=== PATIENT | female | born 1985 | race Caucasian/White ===

== ENCOUNTER 2016-12-14 09:51 | Emergency (ER) | payer MEDICAID, OTHER ==
[~2016-12-14] VITALS: Ht 170.2 cm; Wt 67.0 kg
[~2016-12-14 09:51] MED LIST: ABIL30TA2 PO; ADDE20 PO; BACT800T5 PO; BUTA1CAP PO; CEPH-460 PO; CITA40TA4 PO; XANA2TAB2 PO
[2016-12-14 09:54] VITALS: BP 106/69; PULSE 78; RESP 18; TEMP 98.3; O2SAT 96
[2016-12-14 10:41] LABS: AUTOMATED NEUTROPHIL # 2.8 TH/MM3 (1.8-7.7); BASOPHIL % 0.5 % (0.0-2.0); EOSINOPHIL # 0.2 TH/MM3 (0-0.4); EOSINOPHIL % 4.8 % (0.0-4.0); HEMATOCRIT 31.1 % (35.0-46.0); HEMO FLAGS DIFF FINAL; LYMPH % 33.1 % (9.0-44.0); LYMPHOCYTE # 1.7 TH/MM3 (1.0-4.8); MEAN CELL VOLUME 87.4 FL (80.0-100.0); MEAN CORPUSCULAR HEMOGLOBIN 29.7 PG (27.0-34.0); MONO % 8.2 % (0.0-8.0); NEUT % 53.4 % (16.0-70.0); PLATELET COUNT 201 TH/MM3 (150-450); RED BLOOD COUNT 3.56 MIL/MM3 (4.00-5.30); RED CELL DISTRIBUTION WIDTH 12.6 % (11.6-17.2); WHITE BLOOD COUNT 5.1 TH/MM3 (4.0-11.0)
[2016-12-14 10:42] LABS: BLOOD, URINE NEG (NEG); GLUCOSE,URINE NEG (NEG); KETONE, URINE NEG (NEG); NITRITE,URINE NEG (NEG)
[2016-12-14 10:50] LABS: CHLORIDE 105 MEQ/L (98-107); POTASSIUM 3.4 MEQ/L (3.5-5.1); SODIUM (NA) 141 MEQ/L (136-145)
[2016-12-14 10:52] LABS: BACTERIA, URINE FEW /hpf; COMMENT (UR) CULT NOT INDICATED; CULTURE IF INDICATED CULT NOT INDICATED; METHOD OF COLLECTION VOIDED; MUCUS URINE FEW /lpf (OCC); SQUAMOUS EPITHELIAL CELL URINE >8 /hpf (0-5); URINE COLOR YELLOW (YELLW/STRAW)
[2016-12-14 10:55] LABS: ANION GAP 9 MEQ/L (5-15); BICARBONATE 26.7 MEQ/L (21.0-32.0); BLOOD UREA NITROGEN 5 MG/DL (7-18)
[2016-12-14 10:58] LABS: ALT (GPT) 15 U/L (10-53); AST (GOT) 12 U/L (15-37); GLOMERULAR FILTRATION RATE 151 ML/MIN (>89)
[2016-12-14 10:59] LABS: TOTAL BILIRUBIN ADULT 0.5 MG/DL (0.2-1.0)
[2016-12-14] MEDS ORDERED: ONDANSETRON HCL 4 MG/2 ML VIAL IV ONE (11:00)
[2016-12-14] MEDS ORDERED: SODIUM CHLOR 0.9% 1000 ML INJ 1,000 ML IV SCH ×2 (11:00)
[2016-12-14 11:01] LABS: ALKALINE PHOSPHATASE 50 U/L (45-117)
--- NOTE | 2016-12-14 11:07 | PD ---
HPI Chief Complaint: GI Complaint Time Seen by Provider: 10:24 Travel History International Travel<30 days: No Contact w/Intl Traveler<30days: No Traveled to known affect area: No History of Present Illness HPI Is a 31-year-old woman who presents to the emergency department complaining of nausea and vomiting. States that she is approximately 16 weeks . Her last menstrual period she believes is in the middle of October. She states she's had worsening nausea and vomiting pretty much throughout the day for the past several weeks. She saw good days at times with 11 couple days in a row significant vomiting. She otherwise has felt generally well. She states she does get some intermittent abdominal cramping when she first stands up if she is vomiting a lot. No urinary symptoms. She had trouble with vomiting with her last . She is 5 para 3, 0, 1, 2 losing one infant to sudden . History Past Medical History Narrative Medical Hepatitis C LMP: 10/15/16 : 3 Para: 2 Social History Alcohol Use: Yes (SOCIALLY) Tobacco Use: Yes (4 CIG/DAY) Allergies-Medications (Allergen,Severity, Reaction): Coded Allergies: Penicillin (Verified Allergy, Severe, SWELLED UP CHILD, 12/14/16) Reported Meds & Prescriptions Reported Meds & Active Scripts Active Reported Adderall (Amphetamine-Dextroamphetamine) 20 Mg Tab 20 Mg PO BID Avoid late evening doses. Space doses at least 4 to 6 hours if more than once/day dosing. Xanax (Alprazolam) 2 Mg Tab 2 Mg PO TID Review of Systems Except as stated in HPI: all other systems reviewed are Neg Physical Exam Narrative GENERAL: Well-appearing 31-year-old woman. Bag of Medversants in the room with her. SKIN: Focused skin assessment warm/dry. NECK: Trachea midline. No JVD. CARDIOVASCULAR: Regular rate and rhythm. No murmur appreciated. RESPIRATORY: No accessory muscle use. Clear to auscultation. Breath sounds equal bilaterally. GASTROINTESTINAL: Abdomen soft, non-tender, nondistended. Hepatic and splenic margins not palpable. MUSCULOSKELETAL: No obvious deformities. No clubbing. No cyanosis. No edema. NEUROLOGICAL: Awake and alert. No obvious cranial nerve deficits. Motor grossly within normal limits. Normal speech. PSYCHIATRIC: Appropriate mood and affect; insight and judgment normal. Data Data Last Documented VS Vital Signs Date Time Temp Pulse Resp B/P Pulse Ox O2 Delivery O2 Flow Rate FiO2 12/14/16 09:54 98.3 78 18 106/69 96 Orders Beta Hcg (Quant/Titer) (12/14/16 10:11) Complete Blood Count With Diff (12/14/16 10:11) Comprehensive Metabolic Panel (12/14/16 10:11) Urinalysis - C+S If Indicated (12/14/16 10:11) Ed Poc Ultrasound (12/14/16 10:11) Ondansetron Inj (Zofran Inj) (12/14/16 11:00) Sodium Chlor 0.9% 1000 Ml Inj (Ns 1000 M (12/14/16 11:00) Sodium Chlor 0.9% 1000 Ml Inj (Ns 1000 M (12/14/16 11:00) Labs Laboratory Tests Test 12/14/16 12/14/16 10:30 10:35 White Blood Count 5.1 TH/MM3 Red Blood Count 3.56 MIL/MM3 Hemoglobin 10.6 GM/DL Hematocrit 31.1 % Mean Corpuscular Volume 87.4 FL Mean Corpuscular Hemoglobin 29.7 PG Mean Corpuscular Hemoglobin 34.0 % Concent Red Cell Distribution Width 12.6 % Platelet Count 201 TH/MM3 Mean Platelet Volume 8.7 FL Neutrophils (%) (Auto) 53.4 % Lymphocytes (%) (Auto) 33.1 % Monocytes (%) (Auto) 8.2 % Eosinophils (%) (Auto) 4.8 % Basophils (%) (Auto) 0.5 % Neutrophils # (Auto) 2.8 TH/MM3 Lymphocytes # (Auto) 1.7 TH/MM3 Monocytes # (Auto) 0.4 TH/MM3 Eosinophils # (Auto) 0.2 TH/MM3 Basophils # (Auto) 0.0 TH/MM3 CBC Comment DIFF FINAL Differential Comment Sodium Level 141 MEQ/L Potassium Level 3.4 MEQ/L Chloride Level 105 MEQ/L Carbon Dioxide Level 26.7 MEQ/L Anion Gap 9 MEQ/L Blood Urea Nitrogen 5 MG/DL Creatinine 0.48 MG/DL Estimat Glomerular Filtration 151 ML/MIN Rate Random Glucose 87 MG/DL Calcium Level 8.6 MG/DL Total Bilirubin 0.5 MG/DL Aspartate Amino Transf 12 U/L (AST/SGOT) Alanine Aminotransferase 15 U/L (ALT/SGPT) Alkaline Phosphatase 50 U/L Total Protein 6.4 GM/DL Albumin 3.1 GM/DL Human Chorionic Gonadotropin, 94958 MIU/ML Quant Urine Collection Type VOIDED Urine Color YELLOW Urine Turbidity CLEAR Urine pH 6.0 Urine Specific [place] 1.026 Urine Protein TRACE mg/dL Urine Glucose (UA) NEG mg/dL Urine Ketones NEG mg/dL Urine Occult Blood NEG Urine Nitrite NEG Urine Bilirubin NEG Urine Leukocyte Esterase SMALL Urine WBC 6-8 /hpf Urine Squamous Epithelial >8 /hpf Cells Urine Bacteria FEW /hpf Urine Mucus FEW /lpf Microscopic Urinalysis Comment CULT NOT INDICATED MDM Medical Decision Making Medical Screen Exam Complete: Yes Emergency Medical Condition: Yes Interpretation(s) LABS: CBC remarkable for mild anemia. CMP unremarkable. HCG 90,000 UA minimal pyuria. Differential Diagnosis LABS: CBC remarkable for mild anemia. CMP generally unremarkable. HCG negative. Coags unremarkable. Narrative Course 31-year-old woman, , bedside ultrasound shows about 12 weeks , here with vomiting. Looks well. We'll check screening labs. IV fluids. We' ll recommend Zofran. Discussed recent studies suggesting in association with defect some Zofran. Even her she may begin vomiting, and the benefit outweighs the potential risks. Patient's understanding. Recommend outpatient follow-up. Procedures Procedure Narrative Point of care ultrasound: Focus transabdominal ultrasound performed by me at the bedside shows intrauterine , presently 12 weeks 4 days by crown-rump length, with good heart movement in a heart rate of 150. Diagnosis Primary Impression: Nausea/vomiting in Additional Instructions: Take Zofran as needed for nausea or vomiting. Return to the emergency department for any worsening abdominal pain, dehydration , vaginal discharge or vaginal bleeding, or any other new or worsening symptoms. 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 Med/Other Pt SpecificInfo: Prescription(s) given Scripts Ondansetron Odt (Zofran Odt)4 Mg Tab4 Mg SL Q8HR PRN (Nausea/Vomiting) #15 TAB May substitute non-ODT form. Prov:Rosalio Mercado MD 12/14/16 Disposition: 01 DISCHARGE HOME Condition: Stable Rosalio Mercado MD Dec 14, 2016 11:07
[2016-12-14 11:16] LABS: BETA HCG QUANT 89524 MIU/ML (0-5)
[2016-12-14] MEDS ORDERED: ZOFR4TAB3 SL (11:27)
== END 2016-12-14 11:58 | disposition home or self-care (01) ==
LOC: PHED 09:51
DX: O21.9 Vomiting of pregnancy, unspecified (principal); O99.331 Smoking (tobacco) complicating pregnancy, first trimester; O98.411 Viral hepatitis complicating pregnancy, first trimester; B19.20 Unspecified viral hepatitis C without hepatic coma; F17.210 Nicotine dependence, cigarettes, uncomplicated; Z3A.12 12 weeks gestation of pregnancy
CPT/HCPCS: 80053; 81001; 84702; 85025; 96361; 96374; 99284; J2405; J7030

== ENCOUNTER 2017-01-02 14:00 | Emergency (ER) | payer MEDICAID ==
[~2017-01-02] VITALS: Ht 170.2 cm; Wt 69.1 kg
[~2017-01-02 14:00] MED LIST changes: -ABIL30TA2 PO; -BACT800T5 PO; -BUTA1CAP PO; -CEPH-460 PO; -CITA40TA4 PO; +ZOFR4TAB3 SL
[2017-01-02 14:06] VITALS: BP 122/75; PULSE 86; RESP 16; TEMP 97.9; O2SAT 99
--- NOTE | 2017-01-02 14:16 | PD ---
HPI . left arm possible cellulitis Chief Complaint: Skin Problem Time Seen by Provider: 14:16 Travel History International Travel<30 days: No Contact w/Intl Traveler<30days: No Traveled to known affect area: No History of Present Illness HPI 31-year-old female with hepatitis C and who is 4 months here with complaints of a possible cellulitis of her left arm. Patient tells me she's had this happen before and she thinks the same thing is occurring. She reports a small area of redness that started several days ago, and has progressively worsened over the past few days. She reports some tenderness to the area. She is not certain if she may have been stung by an insect. She denies any fever or chills. She is able to move her arm freely without any limited range of motion. She has no other concerns. She has not yet established with [facility]. PFSH Past Medical History Arthritis: No Asthma: No Anxiety: Yes Depression: Yes Diabetes: No Diminished Hearing: No Genitourinary: Yes (UTI'S) Headaches: Yes Hepatitis: Yes (hepatitis C) Hypertension: No Reproductive: Yes (" I GET MY PERIOD ONCE OR TWICE A YEAR") Respiratory: No Migraines: Yes (D/T SINUS INFECTIONS AMD ALLERGIES) ?: LMP: 4 months states LMP 09/20/16 : 3 Para: 2 Miscarriage: 1 Social History Alcohol Use: Yes (SOCIALLY) Tobacco Use: Yes (4 CIG/DAY) Substance Use: No (DENIES AT PRESENT) Allergies-Medications (Allergen,Severity, Reaction): Coded Allergies: Penicillin (Verified Allergy, Severe, SWELLED UP CHILD, 01/02/17) Reported Meds & Prescriptions Reported Meds & Active Scripts Active Clindamycin (Clindamycin HCl) 300 Mg Cap 300 Mg PO TID Review of Systems General / Constitutional: No: Fever Eyes: No: Visual changes HENT: No: Headaches Cardiovascular: No: Chest Pain or Discomfort Respiratory: No: Shortness of Breath Gastrointestinal: No: Abdominal Pain Genitourinary: No: Dysuria Musculoskeletal: No: Pain Skin: Positive Other (left arm cellulitis ), No Rash Neurologic: No: Weakness Psychiatric: No: Depression Endocrine: No: Polydipsia Hematologic/Lymphatic: No: Easy Bruising Physical Exam Narrative GENERAL: AAO x 3, no acute distress, Well-nourished, well-developed patient. SKIN: Warm and dry. No visible rashes or bruising. left arm proximal to antecubital fossa, small 2.5 cm area of induration without any fluctuance, there is surrounding erythema and slight warmth to touch. HEAD: Normocephalic and atraumatic. EYES: No scleral icterus. No injection or drainage. ENT: No nasal drainage noted. Mucous membranes pink. Airway patent. NECK: Supple, trachea midline. No JVD. CARDIOVASCULAR: Regular rate and rhythm without murmurs, gallops, or rubs. RESPIRATORY: Breath sounds equal bilaterally. No accessory muscle use. No rhonchi or rales. GASTROINTESTINAL: Visual inspection normal EXTREMITIES: No cyanosis or edema. Full ROM b/l arm. BACK: Nontender without obvious deformity. No CVA tenderness. NEURO: CN II-12 intact, c programmer strength normal b/l, UE and LE 5/5, no focal deficits PSYCH: AAO x 3, normal affect. Data Data Last Documented VS Vital Signs Date Time Temp Pulse Resp B/P Pulse Ox O2 Delivery O2 Flow Rate FiO2 01/02/17 14:06 97.9 86 16 122/75 99 MDM Medical Decision Making Medical Screen Exam Complete: Yes Emergency Medical Condition: Yes Medical Record Reviewed: Yes Differential Diagnosis left arm cellulitis, early abscess, insect bite, less likely shingle Narrative Course 31-year-old female here with possible left arm cellulitis Examination was done and patient does appear to have a very superficial area of left arm cellulitis. She is currently and has not had any care. I have discussed case with Dr. Barker. We will go ahead and use clindamycin which is category B and safe in . I have stressed to patient that she needs to establish with a local [facility] for care. We discussed the signs of worsening infection when to return to the emergency department. I also advised her clean with soap and water daily and use topical Neosporin. Patient verbalized understanding of instructions, questions were answered, and thanked me for their care. I advised them if their condition worsens, please return to the nearest emergency room for further care. Diagnosis Primary Impression: Cellulitis of left arm Patient Instructions: General Instructions Additional Instructions: Please try to establish with a local [facility] and get care as soon as possible. [place] for worsening signs of infection which include fever, increased redness , increased warmth, purulent drainage, increased swelling or streaking. If any of these develop, please go to the nearest emergency room. You can also try topical neosporin to this area. Clean with soap and water daily. You can try to use warm compresses to the area to see if a head develops. If it does, you can come back to the emergency department to have it drained. Med/Other Pt SpecificInfo: Prescription(s) given Scripts Clindamycin 300 Mg Act816 Mg PO TID #21 CAP Prov:Amrik Barker MD 01/02/17 Disposition: 01 DISCHARGE HOME Condition: Stable Luna Sands Jan 02, 2017 14:16
[2017-01-02] MEDS ORDERED: CLIN1CAP6 PO (14:23)
== END 2017-01-02 14:36 | disposition home or self-care (01) ==
LOC: PHEFT 14:00
DX: O98.819 Other maternal infectious and parasitic diseases complicating pregnancy, unspecified trimester (principal); L03.114 Cellulitis of left upper limb; O09.30 Supervision of pregnancy with insufficient antenatal care, unspecified trimester; Z3A.00 Weeks of gestation of pregnancy not specified
CPT/HCPCS: 99283

== ENCOUNTER 2017-01-30 15:59 | Emergency (ER) | payer MEDICAID ==
[~2017-01-30] VITALS: Ht 170.2 cm; Wt 69.0 kg
[~2017-01-30 15:59] MED LIST changes: -ADDE20 PO; +CLIN1CAP6 PO; -XANA2TAB2 PO; -ZOFR4TAB3 SL
[2017-01-30 16:02] VITALS: BP 114/53; PULSE 74; RESP 16; TEMP 97.3; O2SAT 99
[2017-01-30] MEDS ORDERED: SODIUM CHLOR 0.9% 1000 ML INJ 1,000 ML IV SCH (16:18)
[2017-01-30 16:22] VITALS: RESP 18; O2SAT 98
--- NOTE | 2017-01-30 16:22 | PD ---
HPI Chief Complaint: Related Problem Time Seen by Provider: 16:08 Travel History International Travel<30 days: No Contact w/Intl Traveler<30days: No Traveled to known affect area: No History of Present Illness HPI 31-year-old female approximately 4 months here for evaluation of left lower abdominal pain and left flank pain. Symptoms started yesterday, sharp, moderate pain, constant, no modifying factors. She denies fevers or chills. No urinary symptoms. No vaginal bleeding or discharge. She reports several episodes of vomiting yesterday. She has not yet had care. She smokes about a half pack of cigarettes daily. PFSH Past Medical History Arthritis: No Asthma: No Anxiety: Yes Depression: Yes Diabetes: No Diminished Hearing: No Genitourinary: Yes (UTI'S) Headaches: Yes Hepatitis: Yes (hepatitis C) Hypertension: No Reproductive: Yes (" I GET MY PERIOD ONCE OR TWICE A YEAR") Respiratory: No Immunizations Current: No Migraines: Yes (D/T SINUS INFECTIONS AMD ALLERGIES) ?: LMP: 10/21/2016 : 3 Para: 2 Miscarriage: 1 Social History Alcohol Use: Yes (SOCIALLY) Tobacco Use: Yes (4 CIG/DAY) Substance Use: No (DENIES AT PRESENT) Allergies-Medications (Allergen,Severity, Reaction): Coded Allergies: Penicillin (Verified Allergy, Severe, PT DENIES ALLERGY, 01/30/17) Reported Meds & Prescriptions Reported Meds & Active Scripts Active Clindamycin (Clindamycin HCl) 300 Mg Cap 300 Mg PO TID Review of Systems Except as stated in HPI: all other systems reviewed are Neg Physical Exam Narrative GENERAL: Well-developed, well-nourished, comfortable, no apparent distress. SKIN: Focused skin assessment warm/dry. No rash. HEAD: Atraumatic. Normocephalic. EYES: Pupils equal and round. No scleral icterus. No injection or drainage. ENT: Mucous membranes pink and moist. NECK: Trachea midline. No JVD. CARDIOVASCULAR: Regular rate and rhythm. RESPIRATORY: No accessory muscle use. Clear to auscultation. Breath sounds equal bilaterally. GASTROINTESTINAL: Abdomen soft, non-tender, gravid uterus around the umbilicus. MUSCULOSKELETAL: No obvious deformities. No clubbing. No cyanosis. No edema. NEUROLOGICAL: Awake and alert. No obvious cranial nerve deficits. Motor grossly within normal limits. Normal speech. PSYCHIATRIC: Appropriate mood and affect; insight and judgment normal. Data Data Last Documented VS Vital Signs Date Time Temp Pulse Resp B/P Pulse Ox O2 Delivery O2 Flow Rate FiO2 01/30/17 16:22 18 98 Room Air 01/30/17 16:02 97.3 74 114/53 Orders Complete Blood Count With Diff (01/30/17 16:18) Comprehensive Metabolic Panel (01/30/17 16:18) Urinalysis - C+S If Indicated (01/30/17 16:18) Iv Access Insert/Monitor (01/30/17 16:18) Ecg Monitoring (01/30/17 16:18) Oximetry (01/30/17 16:18) Sodium Chlor 0.9% 1000 Ml Inj (Ns 1000 M (01/30/17 16:18) Sodium Chloride 0.9% Flush (Ns Flush) (01/30/17 16:30) Potassium Chloride (Kcl) (01/30/17 17:15) Labs Laboratory Tests Test 01/30/17 16:45 White Blood Count 6.7 TH/MM3 Red Blood Count 3.74 MIL/MM3 Hemoglobin 10.8 GM/DL Hematocrit 33.4 % Mean Corpuscular Volume 89.3 FL Mean Corpuscular Hemoglobin 28.9 PG Mean Corpuscular Hemoglobin 32.3 % Concent Red Cell Distribution Width 13.2 % Platelet Count 288 TH/MM3 Mean Platelet Volume 7.7 FL Neutrophils (%) (Auto) 58.8 % Lymphocytes (%) (Auto) 29.4 % Monocytes (%) (Auto) 6.8 % Eosinophils (%) (Auto) 4.7 % Basophils (%) (Auto) 0.3 % Neutrophils # (Auto) 3.9 TH/MM3 Lymphocytes # (Auto) 2.0 TH/MM3 Monocytes # (Auto) 0.5 TH/MM3 Eosinophils # (Auto) 0.3 TH/MM3 Basophils # (Auto) 0.0 TH/MM3 CBC Comment DIFF FINAL Differential Comment Urine Collection Type CLEAN CATCH Urine Color YELLOW Urine Turbidity CLEAR Urine pH 6.0 Urine Specific [place] 1.028 Urine Protein NEG mg/dL Urine Glucose (UA) NEG mg/dL Urine Ketones TRACE mg/dL Urine Occult Blood NEG Urine Nitrite NEG Urine Bilirubin NEG Urine Leukocyte Esterase NEG Urine RBC 0-3 /hpf Urine WBC 3-5 /hpf Urine Squamous Epithelial 6-8 /hpf Cells Urine Amorphous Sediment FEW Microscopic Urinalysis Comment CULT NOT INDICATED Sodium Level 137 MEQ/L Potassium Level 3.2 MEQ/L Chloride Level 104 MEQ/L Carbon Dioxide Level 24.9 MEQ/L Anion Gap 8 MEQ/L Blood Urea Nitrogen 9 MG/DL Creatinine 0.61 MG/DL Estimat Glomerular Filtration 114 ML/MIN Rate Random Glucose 75 MG/DL Calcium Level 8.5 MG/DL Total Bilirubin 0.4 MG/DL Aspartate Amino Transf 17 U/L (AST/SGOT) Alanine Aminotransferase 16 U/L (ALT/SGPT) Alkaline Phosphatase 68 U/L Total Protein 6.9 GM/DL Albumin 3.0 GM/DL [facility] Medical Decision Making Medical Screen Exam Complete: Yes Emergency Medical Condition: Yes Medical Record Reviewed: Yes Differential Diagnosis , round ligament pain, colitis, diverticulitis, UTI, pyelonephritis, cystitis, nephrolithiasis, hydronephrosis Narrative Course Bedside transabdominal ultrasound was performed by me and shows an IUP with a heart rate of 140 bpm. Bedside renal ultrasound was performed by me and shows normal appearing kidneys bilaterally without signs of hydronephrosis. The patient was counseled on smoking cessation. Vital signs show heart rate 74, blood pressure 114/53, pulse ox 99% on room air , oral temp 97.3F. CBC shows WBC 6.7, hemoglobin 10.8, hematocrit 33.4, platelets 288. H&H was similar to months ago. CMP is remarkable for potassium 3.2, albumin 3, otherwise unremarkable. Potassium replaced orally. UA shows trace ketones, 8 squamous epithelial cells, not suggestive of UTI. The patient is resting comfortably. There is mild suprapubic tenderness. I do not believe that there is an acute surgical process to warrant imaging at this time. She is likely suffering from round ligament pain. She is stable for discharge home with outpatient follow-up. I will give her the [facility] as well as the [place] [facility] with whom to follow-up with this week. She was informed on when to return to the emergency department. She verbalizes understanding and agreement with plan. Procedures Procedure Narrative Bedside OB transabdominal ultrasound: Using the curvilinear ultrasound probe, a bedside ultrasound was performed by me and shows an IUP with heart rate of 140 bpm. Bedside renal ultrasound: Using the curvilinear ultrasound probe, a bedside renal ultrasound was performed by me and shows normal appearing kidneys bilaterally without signs of hydronephrosis. Diagnosis Primary Impression: Abdominal pain during Qualified Code: O26.892 - Abdominal pain during in second trimester Additional Impression: Hypokalemia Referrals: [facility] 3 days [facility] 3 days Additional Instructions: Follow-up with an NETWORK INTELLIGENCE ANALYST doctor this week. Return to the emergency department for worsening symptoms or any other concerns. Disposition: 01 DISCHARGE HOME Condition: Stable Sunday Wang MD Jan 30, 2017 16:22
[2017-01-30] MEDS ORDERED: SODIUM CHLORIDE 0.9% FLUSH 10 ML FLUSH IV FLUSH PRN (16:30)
[2017-01-30 16:54] LABS: AUTOMATED NEUTROPHIL # 3.9 TH/MM3 (1.8-7.7); BASOPHIL % 0.3 % (0.0-2.0); EOSINOPHIL # 0.3 TH/MM3 (0-0.4); EOSINOPHIL % 4.7 % (0.0-4.0); HEMATOCRIT 33.4 % (35.0-46.0); HEMO FLAGS DIFF FINAL; LYMPH % 29.4 % (9.0-44.0); MEAN CELL VOLUME 89.3 FL (80.0-100.0); MEAN CORPUSCULAR HEMOGLOBIN 28.9 PG (27.0-34.0); MEAN CORPUSCULAR HGB CONC 32.3 % (32.0-36.0); MONO % 6.8 % (0.0-8.0); NEUT % 58.8 % (16.0-70.0); PLATELET COUNT 288 TH/MM3 (150-450); RED BLOOD COUNT 3.74 MIL/MM3 (4.00-5.30); RED CELL DISTRIBUTION WIDTH 13.2 % (11.6-17.2); WHITE BLOOD COUNT 6.7 TH/MM3 (4.0-11.0)
[2017-01-30 16:57] LABS: BLOOD, URINE NEG (NEG); GLUCOSE,URINE NEG (NEG); KETONE, URINE TRACE mg/dL (NEG); NITRITE,URINE NEG (NEG)
[2017-01-30 16:59] LABS: METHOD OF COLLECTION CLEAN CATCH; URINE COLOR YELLOW (YELLW/STRAW)
[2017-01-30 17:01] LABS: RBC, URINE 0-3 /hpf (0-3)
[2017-01-30 17:02] LABS: CHLORIDE 104 MEQ/L (98-107); COMMENT (UR) CULT NOT INDICATED; COMMENT2 (UR) MUCOUS PRESENT; CULTURE IF INDICATED CULT NOT INDICATED; POTASSIUM 3.2 MEQ/L (3.5-5.1); SODIUM (NA) 137 MEQ/L (136-145)
[2017-01-30 17:05] LABS: ANION GAP 8 MEQ/L (5-15); BICARBONATE 24.9 MEQ/L (21.0-32.0); BLOOD UREA NITROGEN 9 MG/DL (7-18)
[2017-01-30 17:08] LABS: ALT (GPT) 16 U/L (10-53); AST (GOT) 17 U/L (15-37); GLOMERULAR FILTRATION RATE 114 ML/MIN (>89)
[2017-01-30 17:10] LABS: TOTAL BILIRUBIN ADULT 0.4 MG/DL (0.2-1.0)
[2017-01-30 17:11] LABS: ALKALINE PHOSPHATASE 68 U/L (45-117)
[2017-01-30] MEDS ORDERED: POTASSIUM CHLORIDE 20 MEQ CONTROLLED RELEASE TAB PO ONE (17:15)
== END 2017-01-30 18:03 | disposition home or self-care (01) ==
LOC: PHED 15:59
DX: O26.892 Other specified pregnancy related conditions, second trimester (principal); E87.6 Hypokalemia; O99.332 Smoking (tobacco) complicating pregnancy, second trimester; F17.210 Nicotine dependence, cigarettes, uncomplicated; Z3A.00 Weeks of gestation of pregnancy not specified
CPT/HCPCS: 80053; 81001; 85025; 99284; J7030

== ENCOUNTER 2017-07-30 14:42 | Emergency (ER) | payer MEDICAID ==
[~2017-07-30] VITALS: Ht 170.2 cm; Wt 69.0 kg
[~2017-07-30 14:42] MED LIST changes: -CLIN1CAP6 PO; +CLIN300C5 PO
[2017-07-30 14:57] VITALS: BP 104/70; PULSE 93; RESP 16; TEMP 97.7; O2SAT 98
[2017-07-30] MEDS ORDERED: CELE10TA PO (15:50)
[2017-07-30] MEDS ORDERED: ARIP2 PO (15:50)
[2017-07-30] MEDS ORDERED: XANA2TAB2 PO (15:50)
[2017-07-30] MEDS ORDERED: BENZ100 PO (16:25)
[2017-07-30] MEDS ORDERED: AZIT250T3 PO (16:25)
--- NOTE | 2017-07-30 16:29 | PD ---
HPI Chief Complaint: Cold / Flu Symptoms Time Seen by Provider: 15:38 Travel History International Travel<30 days: No Contact w/Intl Traveler<30days: No Traveled to known affect area: No History of Present Illness HPI 32-year-old female that presents to the ED for evaluation of cold-like symptoms. Patient has a cold like symptoms for about 3 days. She does have body aches, congestion and cough with runny nose. Sore throat. No ear pain. Patient comes here with daughter who has been sick for about 5 days. She did not get the flu shot. She denies any recent travel. No chest pain or shortness of breath. Having body aches and the pain per patient is 6 out of 10. She been taking OTC meds with minimal relief. Allergy to penicillin. No other medical issues at this time. PFSH Past Medical History Arthritis: No Asthma: No Anxiety: Yes Depression: Yes Diabetes: No Diminished Hearing: No Genitourinary: Yes (UTI'S) Headaches: Yes Hepatitis: Yes (hepatitis C) Hypertension: No Reproductive: Yes (" I GET MY PERIOD ONCE OR TWICE A YEAR") Respiratory: No Immunizations Current: Yes Migraines: Yes (D/T SINUS INFECTIONS AMD ALLERGIES) ?: Not : 3 Para: 2 Miscarriage: 1 Past Surgical History Other Surgery: No Social History Alcohol Use: Yes (SOCIALLY) Tobacco Use: Yes (4 CIG/DAY) Substance Use: No (hx of iv drug use) Allergies-Medications (Allergen,Severity, Reaction): Coded Allergies: penicillin G (Unverified Allergy, Severe, PT DENIES ALLERGY, 07/30/17) Reported Meds & Prescriptions Reported Meds & Active Scripts Active Tessalon Perles (Benzonatate) 100 Mg Cap 100 Mg PO TID PRN Azithromycin 250 Mg Tab 250 Mg PO DIRECTED Take 2 tabs (500 mg) on day 1 then 1 tab daily x 4 days. Reported Celexa (Citalopram Hydrobromide) 10 Mg Tab 10 Mg PO DAILY Abilify (Aripiprazole) 2 Mg Tab Unknown Dose PO DAILY Xanax (Alprazolam) 2 Mg Tab 2 Mg PO Q8H Review of Systems Except as stated in HPI: all other systems reviewed are Neg Physical Exam Narrative GENERAL: Well-nourished, well-developed patient in no apparent distress. SKIN: Warm and dry. HEAD: Atraumatic. Normocephalic. EYES: Pupils equal and round reactive to light and accommodation. No scleral icterus. No injection or drainage. ENT: No nasal bleeding or discharge. Mucous membranes pink and moist. TMs are clear with no sign of infection or perforation. No mastoid tenderness. Ear canals are intact bilaterally. No lymphadenopathy. Nostril mucosa is red and moist with clear mucus noted. No sinus tenderness to palpation noted. Tonsils are not enlarged or swollen. No ulvua Deviation. Tongue is midline. NECK: Trachea midline. No JVD. No meningeal signs noted CARDIOVASCULAR: Regular rate and rhythm. RESPIRATORY: No accessory muscle use. Clear to auscultation. Breath sounds equal bilaterally. GASTROINTESTINAL: Abdomen soft, non-tender, nondistended. Hepatic and splenic margins not palpable. MUSCULOSKELETAL: Extremities without clubbing, cyanosis, or edema. No obvious deformities. NEUROLOGICAL: Awake and alert. No obvious cranial nerve deficits. Motor grossly within normal limits. Five out of 5 muscle strength in the arms and legs. Normal speech. PSYCHIATRIC: Appropriate mood and affect; insight and judgment normal. Data Data Last Documented VS Vital Signs Date Time Temp Pulse Resp B/P (MAP) Pulse Ox O2 Delivery O2 Flow Rate FiO2 07/30/17 14:57 97.7 93 16 104/70 (81) 98 Orders Orders Influenzae A/B Antigen (07/30/17 15:44) Ed Discharge Order (07/30/17 16:27) [facility] Medical Decision Making Medical Screen Exam Complete: Yes Emergency Medical Condition: Yes Medical Record Reviewed: Yes Interpretation(s) Flu negative Differential Diagnosis Influenza versus bronchitis versus sinusitis versus URI Narrative Course 32-year-old female that presents to the ED for evaluation of cold-like symptoms. Patient was properly examined and was found to have signs and symptoms consistent with cold-like symptoms. Influenza test was done and was negative. Patient was reassured. This time we'll treat with azithromycin as well as Tessalon Perles to cover for bacterial infection. Patient was told to continue taking OTC meds as needed. Follow with PCP. See ED worsening symptoms. Diagnosis Primary Impression: URI, acute Patient Instructions: General Instructions Additional Instructions: Motrin and Tylenol for pain and fever. You can use [id number] antihistamine as well as well as Mucinex as needed for runny nose and congestion. Cough drops for cough as needed. Drink plenty of fluids. Follow-up with PCP. See ED for worsening symptoms. Med/Other Pt SpecificInfo: Prescription(s) given Scripts Benzonatate (Tessalon Perles) 100 Mg Cap 100 MG PO TID Y for COUGH, #20 CAP 0 Refills Prov: Tommie Christopher MD 07/30/17 Azithromycin (Azithromycin) 250 Mg Tab 250 MG PO DIRECTED for Infection, #6 TAB 0 Refills Take 2 tabs (500 mg) on day 1 then 1 tab daily x 4 days. Prov: Tommie Christopher MD 07/30/17 Disposition: 01 DISCHARGE HOME Condition: Stable Christian Dodson Jul 30, 2017 16:29
== END 2017-07-30 16:42 | disposition home or self-care (01) ==
LOC: PHEFT 14:42
DX: J06.9 Acute upper respiratory infection, unspecified (principal); F32.9 Major depressive disorder, single episode, unspecified; F41.9 Anxiety disorder, unspecified; F17.210 Nicotine dependence, cigarettes, uncomplicated
CPT/HCPCS: 87804; 99283

== ENCOUNTER 2017-09-04 14:17 | Inpatient (IN) | payer MEDICAID ==
[~2017-09-04] VITALS: Ht 167.6 cm; Wt 67.7 kg
[~2017-09-04 14:17] MED LIST changes: +ARIP2 PO; +AZIT250T3 PO; +BENZ100 PO; +CELE10TA PO; -CLIN300C5 PO; +XANA2TAB2 PO
[2017-09-04 14:20] VITALS: BP 128/67; PULSE 65; RESP 16; TEMP 97.4; O2SAT 100
[2017-09-04] MEDS ORDERED: VANCOMYCIN INJ 1,000 MG in SODIUM CHLOR 0.9% 250 ML INJ 250 ML IV ONE (14:45)
[2017-09-04] MEDS ORDERED: cefTRIAXone INJ 2,000 MG in SODIUM CHLORIDE 0.9% INJ 100 ML IV ONE (14:45)
[2017-09-04] MEDS ORDERED: MORPHINE SULFATE 2 MG/ML INJ IV PUSH ONE ×2 (14:45→15:45)
[2017-09-04] MEDS ORDERED: ADDE20 PO (14:48)
--- NOTE | 2017-09-04 15:04 | PD ---
HPI Chief Complaint: Skin Problem Time Seen by Provider: 14:31 Travel History International Travel<30 days: No Contact w/Intl Traveler<30days: No Traveled to known affect area: No History of Present Illness HPI 32-year-old female here for evaluation of right hand pain and infection. The patient used IV drugs about 2 weeks ago having heroin injected into her right hand. She reports developing an infection about 3 days ago which started with swelling and erythema and has progressed to a large open wound. The patient has tried cutting the wound open herself. Pain is severe, constant, worse with movements and palpation. She denies fevers or chills. She reports full range of motion in her right hand. She is right-hand dominant. [facility] Past Medical History Arthritis: No Asthma: No Anxiety: Yes Depression: Yes Diabetes: No Diminished Hearing: No Genitourinary: Yes (UTI'S) Headaches: Yes Hepatitis: Yes (hepatitis C) Hypertension: No Reproductive: Yes (" I GET MY PERIOD ONCE OR TWICE A YEAR") Respiratory: No Immunizations Current: Yes Migraines: Yes (D/T SINUS INFECTIONS AMD ALLERGIES) Tetanus Vaccination: < 5 Years Influenza Vaccination: No ?: Not LMP: 3 WEEKS : 3 Para: 2 Miscarriage: 1 Past Surgical History Other Surgery: No Social History Alcohol Use: Yes (SOCIALLY) Tobacco Use: Yes (1/2 PPD) Substance Use: No (hx of iv drug use) Allergies-Medications (Allergen,Severity, Reaction): Coded Allergies: penicillin G (Unverified Allergy, Severe, PT DENIES ALLERGY, 09/04/17) Reported Meds & Prescriptions Reported Meds & Active Scripts Active Reported Adderall (Amphetamine-Dextroamphetamine) 20 Mg Tab 20 Mg PO BID Avoid late evening doses. Space doses at least 4 to 6 hours if more than once/day dosing. Xanax (Alprazolam) 2 Mg Tab 2 Mg PO Q8H Review of Systems Except as stated in HPI: all other systems reviewed are Neg Physical Exam Narrative GENERAL: Well-developed, well-nourished, tearful, no apparent distress. SKIN: Dorsum of right hand with large 4 cm x 4 cm circular wound with central eschar with surrounding warmth and erythema as well as spontaneous drainage of pus. HEAD: Atraumatic. Normocephalic. EYES: Pupils equal and round. No scleral icterus. No injection or drainage. ENT: Mucous membranes pink and moist. NECK: Trachea midline. No JVD. CARDIOVASCULAR: Regular rate and rhythm. RESPIRATORY: No accessory muscle use. Clear to auscultation. Breath sounds equal bilaterally. GASTROINTESTINAL: Abdomen soft, non-tender, nondistended. Hepatic and splenic margins not palpable. MUSCULOSKELETAL: Skin exam as above. Normal range of flexion and extension in the right hand and wrist. No [place] signs. NEUROLOGICAL: Awake and alert. No obvious cranial nerve deficits. Motor grossly within normal limits. Normal speech. PSYCHIATRIC: Appropriate mood and affect; insight and judgment normal. Data Data Last Documented VS Vital Signs Date Time Temp Pulse Resp B/P (MAP) Pulse Ox O2 Delivery O2 Flow Rate FiO2 09/04/17 15:56 56 20 98/53 (68) 96 Room Air 09/04/17 14:20 97.4 Orders Orders Sepsis Workup Initiated (09/04/17 ) Complete Blood Count With Diff (09/04/17 14:39) Comprehensive Metabolic Panel (09/04/17 14:39) Lactic Acid Sepsis Protocol (09/04/17 14:39) Blood Culture (09/04/17 14:39) Blood Glucose (09/04/17 14:39) Ecg Monitoring (09/04/17 14:39) Iv Access Insert/Monitor (09/04/17 14:39) Oximetry (09/04/17 14:39) Oxygen Administration (09/04/17 14:39) Morphine Inj (Morphine Inj) (09/04/17 14:45) Vancomycin Inj (Vancomycin Inj) (09/04/17 14:45) Ceftriaxone Inj (Rocephin Inj) (09/04/17 14:45) Consult Hand Surgery (09/04/17 ) Wound Culture And Gram Stain (09/04/17 15:36) Morphine Inj (Morphine Inj) (09/04/17 15:45) (Hub Use Only)Inp Phy Cons/Ref (09/04/17 ) Admit Order (Ed Use Only) (09/04/17 16:01) Labs Laboratory Tests Test 09/04/17 14:50 White Blood Count 7.5 TH/MM3 Red Blood Count 4.45 MIL/MM3 Hemoglobin 12.1 GM/DL Hematocrit 37.1 % Mean Corpuscular Volume 83.3 FL Mean Corpuscular Hemoglobin 27.2 PG Mean Corpuscular Hemoglobin Concent 32.7 % Red Cell Distribution Width 13.7 % Platelet Count 284 TH/MM3 Mean Platelet Volume 8.5 FL Neutrophils (%) (Auto) 66.7 % Lymphocytes (%) (Auto) 24.0 % Monocytes (%) (Auto) 6.1 % Eosinophils (%) (Auto) 2.6 % Basophils (%) (Auto) 0.6 % Neutrophils # (Auto) 5.0 TH/MM3 Lymphocytes # (Auto) 1.8 TH/MM3 Monocytes # (Auto) 0.5 TH/MM3 Eosinophils # (Auto) 0.2 TH/MM3 Basophils # (Auto) 0.0 TH/MM3 CBC Comment DIFF FINAL Differential Comment Blood Urea Nitrogen 12 MG/DL Creatinine 0.77 MG/DL Random Glucose 77 MG/DL Total Protein 8.3 GM/DL Albumin 3.9 GM/DL Calcium Level 9.2 MG/DL Alkaline Phosphatase 94 U/L Aspartate Amino Transf (AST/SGOT) 44 U/L Alanine Aminotransferase (ALT/SGPT) 48 U/L Total Bilirubin 0.2 MG/DL Sodium Level 141 MEQ/L Potassium Level 4.5 MEQ/L Chloride Level 105 MEQ/L Carbon Dioxide Level 30.2 MEQ/L Anion Gap 6 MEQ/L Estimat Glomerular Filtration Rate 87 ML/MIN Lactic Acid Level 1.5 mmol/L MDM Medical Decision Making Medical Screen Exam Complete: Yes Emergency Medical Condition: Yes Differential Diagnosis Right hand abscess, right hand cellulitis, osteomyelitis, extensor tenosynovitis Narrative Course Patient has a large wound to the dorsum of her right hand with a central eschar. This wound is draining pus spontaneously, however a significant amount of pus was expressed by me. Case discussed with on-call hand surgeon Dr. Herring who recommends unroofing the eschar and having the patient's arm elevated using an IV pole as well as IV antibiotics. Patient will be admitted and he will see the patient in consultation. Part of the eschar was cut away exposing tendon and bone on the dorsum of the patient's hand. More pus was expressed. Iodoform packing placed. CBC: WBC 7.5, hemoglobin 12.1, hematocrit 37.1, platelets 284. CMP is unremarkable. Lactic acid is 1.5. The patient was started on IV vancomycin and IV Rocephin. She will be admitted for further IV antibiotic therapy and hand surgery evaluation for deep right hand wound/abscess. Case discussed with hospitalist Dr. Asencio who will admit the patient to his service. Diagnosis Primary Impression: Abscess of right hand Additional Impression: IV drug abuse Sunday Wang MD Sep 04, 2017 15:04
[2017-09-04 15:10] LABS: BASOPHIL % 0.6 % (0.0-2.0); EOSINOPHIL # 0.2 TH/MM3 (0-0.4); EOSINOPHIL % 2.6 % (0.0-4.0); HEMATOCRIT 37.1 % (35.0-46.0); HEMOGLOBIN 12.1 GM/DL (11.6-15.3); LYMPHOCYTE # 1.8 TH/MM3 (1.0-4.8); MEAN CELL VOLUME 83.3 FL (80.0-100.0); MEAN CORPUSCULAR HEMOGLOBIN 27.2 PG (27.0-34.0); MEAN CORPUSCULAR HGB CONC 32.7 % (32.0-36.0); MEAN PLATELET VOLUME 8.5 FL (7.0-11.0); MONO % 6.1 % (0.0-8.0); MONOCYTE # 0.5 TH/MM3 (0-0.9); NEUT % 66.7 % (16.0-70.0); PLATELET COUNT 284 TH/MM3 (150-450); RED BLOOD COUNT 4.45 MIL/MM3 (4.00-5.30); RED CELL DISTRIBUTION WIDTH 13.7 % (11.6-17.2); WHITE BLOOD COUNT 7.5 TH/MM3 (4.0-11.0)
[2017-09-04 15:17] VITALS: O2SAT 98
[2017-09-04 15:17] LABS: CHLORIDE 105 MEQ/L (98-107); SODIUM (NA) 141 MEQ/L (136-145)
[2017-09-04 15:20] LABS: CALCIUM 9.2 MG/DL (8.5-10.1)
[2017-09-04 15:21] LABS: ALBUMIN 3.9 GM/DL (3.4-5.0); BICARBONATE 30.2 MEQ/L (21.0-32.0); BLOOD UREA NITROGEN 12 MG/DL (7-18); GLUCOSE,RANDOM 77 MG/DL (74-106)
[2017-09-04 15:24] LABS: ALT (GPT) 48 U/L (10-53); AST (GOT) 44 U/L (15-37); CREATININE 0.77 MG/DL (0.50-1.00); GLOMERULAR FILTRATION RATE 87 ML/MIN (>89)
[2017-09-04 15:25] LABS: TOTAL BILIRUBIN ADULT 0.2 MG/DL (0.2-1.0); TOTAL PROTEIN 8.3 GM/DL (6.4-8.2)
[2017-09-04 15:27] LABS: ALKALINE PHOSPHATASE 94 U/L (45-117)
[2017-09-04 15:56] VITALS: BP 98/53; PULSE 56; RESP 20; O2SAT 96
[2017-09-04] MEDS ORDERED: SODIUM CHLORIDE 0.9% FLUSH 10 ML FLUSH IV FLUSH PRN (16:00)
[2017-09-04] MEDS ORDERED: Vancomycin Consult Pharmacy 1 EA OTHER SCH (16:00)
[2017-09-04] MEDS ORDERED: MAGNESIUM HYDROXIDE SUSP 30 ML CUP PO PRN (16:00)
[2017-09-04] MEDS ORDERED: NALOXONE HCL 0.4 MG/ML AMP IV PUSH PRN (16:00)
[2017-09-04] MEDS ORDERED: ONDANSETRON HCL 4 MG/2 ML VIAL IVP PRN (16:00)
[2017-09-04] MEDS ORDERED: ACETAMINOPHEN/HYDROcodone 325 MG/5 MG TAB PO PRN (16:00)
[2017-09-04] MEDS: SODIUM CHLOR 0.9% 1000 ML INJ 1,000 ML IV SCH ×2 (16:48→21:45)
[2017-09-04 17:46] VITALS: BP 85/58; PULSE 52; RESP 16; TEMP 97.6; O2SAT 98
--- NOTE | 2017-09-04 17:52 | HHI.HP ---
HPI Service [facility] Primary Care Physician No Primary Care Physician Admission Diagnosis Right hand abscess, IVDU Diagnoses: (1) Abscess of right hand Diagnosis: Principal (2) IV drug abuse Diagnosis: Principal Chief Complaint: Right hand pain and swelling Travel History International Travel<30 Days: No Contact w/Intl Traveler <30 Da: No Traveled to Known Affected Are: No History of Present Illness This is a 32-year-old female patient with a known medical history of IV drug abuse and hepatitis C who presented to the ED with complaints of right hand pain , erythema and swelling. Patient states she does have a history of IV drug abuse, and had a relapse roughly 2 weeks ago, injecting heroin into her right hand. She states that about 3 days ago her hand started to swell and become more reddened, progressively developing into a large open wound. Patient's pain is constant. Does have full sensation to right hand, denies any numbness or tingling. Denies any recent fevers or chills. Patient is right-hand dominant. It should be noted that patient is requesting that not be notified about recent relapse. 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 She has told him that she hit her hand in the door. Patient does have a 4 -year-old daughter who is staying with the grandma. At this time patient has been encouraged to tell her and explained that it is very difficult to hide reason of admission but reassured will attempt to respect privacy of patient. Review of Systems Constitutional: DENIES: Fever, Chills Eyes: DENIES: Blurred vision, Diplopia Respiratory: DENIES: Cough, Shortness of breath Cardiovascular: DENIES: Chest pain Gastrointestinal: DENIES: Abdominal pain, Black stools, Bloody stools, Constipation, Diarrhea, Nausea, Vomiting Psychiatric: COMPLAINS OF: Anxiety Except as stated in HPI: all other systems reviewed are Neg Past Family Social History Past Medical History Anxiety Headaches Hepatitis C History of IV drug abuse Past Surgical History Unspecified right knee surgery. Reported Medications Active Reported Adderall (Amphetamine-Dextroamphetamine) 20 Mg Tab 20 Mg PO BID Avoid late evening doses. Space doses at least 4 to 6 hours if more than once/day dosing. Xanax (Alprazolam) 2 Mg Tab 2 Mg PO Q8H Allergies: Coded Allergies: penicillin G (Unverified Allergy, Severe, PT DENIES ALLERGY, 09/04/17) Active Ordered Medications Current Medications Medications (Trade) Dose Ordered Sig/Theodore Route Start Time Stop Time Status Last Admin Sodium Chloride 1,000 ml @ 100 mls/hr Q10H IV 09/04/17 15:58 09/04/17 16:48 (NS Flush) 2 ml UNSCH PRN IV FLUSH 09/04/17 16:00 (NS Flush) 2 ml BID IV FLUSH 09/04/17 21:00 (Zofran Inj) 4 mg Q6H PRN IVP 09/04/17 16:00 ([place] 5-325 Mg) 1 tab Q4H PRN PO 09/04/17 16:00 ([place] 10-325 Mg) 1 tab Q4H PRN PO 09/04/17 16:00 (Narcan Inj) 0.4 mg UNSCH PRN IV PUSH 09/04/17 16:00 (Milk Of Magnesia Liq) 30 ml Q12H PRN PO 09/04/17 16:00 (Lactinex) 1 tab TID PO 09/04/17 18:00 Ceftriaxone Sodium 1000 mg/ Sodium Chloride 100 ml @ 200 mls/hr Q24H IV 09/05/17 15:00 Pharmacy Profile Note 0 ml @ 0 mls/hr UNSCH OTHER 09/04/17 16:00 Vancomycin/Sodium Chloride 200 ml @ 200 mls/hr Q12H IV 09/05/17 06:00 Miscellaneous Information SPECIFIC LAB TO BE DRAWN:VANCO TROUGH DATE TO... ONCE ONCE .XX 09/06/17 05:45 09/06/17 05:46 Family History Denies any significant family medical history. Social History Patient admits to smoking a pack per day of cigarettes since the age of 89 years old. Admits to occasional alcohol use, states she drinks a couple times a year. Patient states she injected heroin 2 weeks ago. States she does have a history of IV drug abuse, has been clean for 3 years now. Physical Exam Vital Signs Vital Signs Date Time Temp Pulse Resp B/P (MAP) Pulse Ox O2 Delivery O2 Flow Rate FiO2 09/04/17 17:46 97.6 52 16 85/58 (67) 98 Room Air 09/04/17 15:56 56 20 98/53 (68) 96 Room Air 09/04/17 15:17 98 Room Air 09/04/17 15:17 98 Room Air 09/04/17 14:20 97.4 65 16 128/67 (87) 100 Physical Exam GENERAL: Well-developed, well-nourished patient in NAD. SKIN: Right hand with bandage, status post I&D at bedside of right hand wound. No drainage or bleeding. HEAD: Normocephalic. Atraumatic. EYES: Pupils equal and round. No scleral icterus. No injection or drainage. ENT: No nasal bleeding or discharge. Mucous membranes pink and moist. NECK: Supple. Trachea midline. CARDIOVASCULAR: Regular rate and rhythm. S1, S2 noted. No murmur appreciated. RESPIRATORY: No accessory muscle use. Clear to auscultation. Breath sounds equal bilaterally. GASTROINTESTINAL: Abdomen soft, non-tender, nondistended. Normoactive bowel sounds x4. MUSCULOSKELETAL: No obvious deformities. Extremities without clubbing, cyanosis , or edema. NEUROLOGICAL: Awake and alert. No obvious cranial nerve deficits. Motor grossly within normal limits. 5/5 muscle strength in bilateral upper and lower extremities. Normal speech. PSYCHIATRIC: Appropriate mood and affect; insight and judgment normal. Laboratory Laboratory Tests Test 09/04/17 14:50 White Blood Count 7.5 Red Blood Count 4.45 Hemoglobin 12.1 Hematocrit 37.1 Mean Corpuscular Volume 83.3 Mean Corpuscular Hemoglobin 27.2 Mean Corpuscular Hemoglobin Concent 32.7 Red Cell Distribution Width 13.7 Platelet Count 284 Mean Platelet Volume 8.5 Neutrophils (%) (Auto) 66.7 Lymphocytes (%) (Auto) 24.0 Monocytes (%) (Auto) 6.1 Eosinophils (%) (Auto) 2.6 Basophils (%) (Auto) 0.6 Neutrophils # (Auto) 5.0 Lymphocytes # (Auto) 1.8 Monocytes # (Auto) 0.5 Eosinophils # (Auto) 0.2 Basophils # (Auto) 0.0 CBC Comment DIFF FINAL Differential Comment Blood Urea Nitrogen 12 Creatinine 0.77 Random Glucose 77 Total Protein 8.3 Albumin 3.9 Calcium Level 9.2 Alkaline Phosphatase 94 Aspartate Amino Transf (AST/SGOT) 44 Alanine Aminotransferase (ALT/SGPT) 48 Total Bilirubin 0.2 Sodium Level 141 Potassium Level 4.5 Chloride Level 105 Carbon Dioxide Level 30.2 Anion Gap 6 Estimat Glomerular Filtration Rate 87 Lactic Acid Level 1.5 Date/Time Source Procedure Growth Status 09/04/17 14:55 Blood Peripheral Aerobic Blood Culture Pending Received 09/04/17 14:55 Blood Peripheral Anaerobic Blood Culture Pending Received 09/04/17 15:39 Wound Hand Gram Stain Pending Received 09/04/17 15:39 Wound Hand Wound Culture Pending Received Result Diagram: 09/04/17 1450 09/04/17 1450 Septic Shock Reassessment Septic shock perfusion: reassessment completed Caprini VTE Risk Assessment Caprini VTE Risk Assessment: No/Low Risk (score <= 1) Caprini Risk Assessment Model Point Value = 1 Point Value = 2 Point Value = 3 Point Value = 5 Age 41-60 Minor surgery BMI > 25 kg/m2 Swollen legs Varicose veins or History of unexplained or recurrent spontaneous Oral contraceptives or hormone replacement Sepsis (< 1 month) Serious lung disease, including pneumonia (< 1 month) Abnormal pulmonary function Acute myocardial infarction Congestive heart failure (< 1 month) History of inflammatory bowel disease Medical patient at bed rest Age 61-74 Arthroscopic surgery Major open surgery (> 45 min) Laparoscopic surgery (> 45 min) Malignancy Confined to bed (> 72 hours) Immobilizing plaster cast Central venous access Age >= 75 History of VTE Family history of VTE Factor V Leiden Prothrombin [id number] Lupus anticoagulant Anticardiolipin antibodies Elevated serum homocysteine Heparin-induced thrombocytopenia Other congenital or acquired thrombophilia Stroke (< 1 month) Elective arthroplasty Hip, pelvis, or leg fracture Acute spinal cord injury (< 1 month) Prophylaxis Regimen Total Risk Factor Score Risk Level Prophylaxis Regimen 0-1 Low Early ambulation 2 Moderate Order ONE of the following: *Sequential Compression Device (SCD) *Heparin 5000 units SQ BID 3-4 Higher Order ONE of the following medications: *Heparin 5000 units SQ TID *Enoxaparin/Lovenox 40 mg SQ daily (WT < 150 kg, CrCl > 30 mL/min) *Enoxaparin/Lovenox 30 mg SQ daily (WT < 150 kg, CrCl > 10-29 mL/min) *Enoxaparin/Lovenox 30 mg SQ BID (WT < 150 kg, CrCl > 30 mL/min) AND/OR *Sequential Compression Device (SCD) 5 or more Highest Order ONE of the following medications: *Heparin 5000 units SQ TID (Preferred with Epidurals) *Enoxaparin/Lovenox 40 mg SQ daily (WT < 150 kg, CrCl > 30 mL/min) *Enoxaparin/Lovenox 30 mg SQ daily (WT < 150 kg, CrCl > 10-29 mL/min) *Enoxaparin/Lovenox 30 mg SQ BID (WT < 150 kg, CrCl > 30 mL/min) AND *Sequential Compression Device (SCD) Assessment and Plan Problem List: (1) Abscess of right hand ICD Code: L02.511 - Cutaneous abscess of right hand Status: Acute (2) IV drug abuse ICD Code: F19.10 - Other psychoactive substance abuse, uncomplicated Status: Acute Assessment and Plan This is a 32-year-old female patient with a known medical history of IV drug abuse and hepatitis C who presented to the ED with complaints of right hand pain , erythema and swelling. Abscess of right hand secondary to recent IV drug injection History of IV drug abuse Patient does not meet sepsis criteria. No leukocytosis. Afebrile. Continue to monitor. Blood cultures and urine cultures ordered and pending. Continue to follow growth. Blood pressure labile, keep map above 65. Ensure hydration, NS @ 100 mls/ hour. Continue IV antibiotics, vancomycin and ceftriaxone IV. Added lactobacillus. Control pain, [place] p.o. available as needed per pain scale. Hand surgeon consulted, appreciate input & recommendations. Status post I&D at bedside in ED. Hand dressed, no bleeding or drainage noted. Continue to monitor. DVT prophylaxis: SCDs. Ambulation. Physician Certification 2 Midnight Certification Type: Admission for Inpatient Services Order for Inpatient Services The services are ordered in accordance with Medicare regulations or non- Medicare payer requirements, as applicable. In the case of services not specified as inpatient-only, they are appropriately provided as inpatient services in accordance with the 2-midnight benchmark. Estimated LOS (days): 3 3 days is the estimated time the patient will need to remain in the hospital, assuming treatment plan goals are met and no additional complications. Post-Hospital Plan: Home Marleen Mondragon Sep 04, 2017 17:52
[2017-09-04] MEDS: LACTOBACILLUS ACIDOPHILUS TAB PO SCH (18:10)
[2017-09-04 20:05] VITALS: BP 105/66; PULSE 85; RESP 16; O2SAT 100
[2017-09-04] MEDS ORDERED: CELE10TA PO (20:16)
[2017-09-04] MEDS ORDERED: ARIP2 PO (20:16)
[2017-09-04] MEDS ORDERED: TRAZ1TAB14 PO (20:16)
[2017-09-04 21:11] VITALS: BP 113/68; PULSE 65; RESP 18; TEMP 97.4; O2SAT 97
[2017-09-04] MEDS: SODIUM CHLORIDE 0.9% FLUSH 10 ML FLUSH IV FLUSH SCH (21:45)
[2017-09-04] MEDS ORDERED: ALPRAZolam 0.25 MG TAB PO ONE (22:15)
[2017-09-04] MEDS: traZODone HCL 50 MG TAB PO SCH (22:57)
[2017-09-05 00:13] VITALS: BP 112/69; PULSE 60; RESP 20; TEMP 97.9; O2SAT 98
[2017-09-05] MEDS ORDERED: VANCOMYCIN INJ 1,000 MG in SODIUM CHLOR 0.9% 250 ML INJ 250 ML IV SCH (03:00)
[2017-09-05] MEDS: VANCOMYCIN 1 GM/200 ML PREMIX IV SCH ×2 (06:02→17:56)
[2017-09-05] MEDS: ACETAMINOPHEN/HYDROcodone 325 MG/10 MG TAB PO PRN ×4 (06:09→22:17)
--- NOTE | 2017-09-05 06:21 | RADRPT ---
EXAM DATE/TIME: 09/05/2017 05:50 [facility] COMPARISON: No previous studies available for comparison. INDICATIONS : Right hand inflammation. MEDICAL HISTORY : None. SURGICAL HISTORY : None. ENCOUNTER: Initial ACUITY: 2 days PAIN SCORE: 4/10 LOCATION: Right upper extremity FINDINGS: There is mild soft tissue swelling medially of the proximal hand. Some gauze is present but no other radiopaque foreign body seen. Bones of the right hand are intact and normally aligned. CONCLUSION: Nonspecific soft tissue swelling medially of the right and. No bony abnormality demonstrated. Kayode Stevenson MD on September 05, 2017 at 6:19 Board Certified Radiologist. This report was verified electronically.
[2017-09-05 08:00] VITALS: BP 116/75; PULSE 60; RESP 15; TEMP 96; O2SAT 99
[2017-09-05 08:28] LABS: EOSINOPHIL # 0.3 TH/MM3 (0-0.4); EOSINOPHIL % 5.8 % (0.0-4.0); HEMATOCRIT 32.4 % (35.0-46.0); HEMOGLOBIN 10.2 GM/DL (11.6-15.3); LYMPH % 42.2 % (9.0-44.0); MEAN CELL VOLUME 83.3 FL (80.0-100.0); MEAN CORPUSCULAR HEMOGLOBIN 26.3 PG (27.0-34.0); MEAN CORPUSCULAR HGB CONC 31.6 % (32.0-36.0); MEAN PLATELET VOLUME 8.6 FL (7.0-11.0); MONO % 9.1 % (0.0-8.0); MONOCYTE # 0.4 TH/MM3 (0-0.9); NEUT % 41.9 % (16.0-70.0); PLATELET COUNT 253 TH/MM3 (150-450); RED BLOOD COUNT 3.89 MIL/MM3 (4.00-5.30); RED CELL DISTRIBUTION WIDTH 13.8 % (11.6-17.2); WHITE BLOOD COUNT 4.7 TH/MM3 (4.0-11.0)
[2017-09-05 08:36] LABS: CHLORIDE 108 MEQ/L (98-107); SODIUM (NA) 144 MEQ/L (136-145)
[2017-09-05] MEDS: LACTOBACILLUS ACIDOPHILUS TAB PO SCH ×3 (08:48→17:39)
[2017-09-05 08:50] LABS: ALBUMIN 2.8 GM/DL (3.4-5.0); ALKALINE PHOSPHATASE 72 U/L (45-117); ALT (GPT) 40 U/L (10-53); AST (GOT) 35 U/L (15-37); BICARBONATE 29.5 MEQ/L (21.0-32.0); BLOOD UREA NITROGEN 12 MG/DL (7-18); CALCIUM 8.3 MG/DL (8.5-10.1); GLOMERULAR FILTRATION RATE 116 ML/MIN (>89); GLUCOSE,RANDOM 90 MG/DL (74-106); TOTAL BILIRUBIN ADULT 0.2 MG/DL (0.2-1.0); TOTAL PROTEIN 6.2 GM/DL (6.4-8.2)
[2017-09-05] MEDS: SODIUM CHLORIDE 0.9% FLUSH 10 ML FLUSH IV FLUSH SCH ×2 (08:54→20:46)
[2017-09-05] MEDS: SODIUM CHLOR 0.9% 1000 ML INJ 1,000 ML IV SCH ×2 (10:21→21:58)
[2017-09-05] MEDS: NICOTINE 14 MG/24 HR PATCH T-DERMAL SCH (11:11)
--- NOTE | 2017-09-05 12:46 | HHI.PR ---
Subjective Remarks Follow-up right hand abscess and IV drug abuse. Patient seen and examined, walking around in room, brother at bedside. No reports of any acute events overnight. Pain is well controlled. Afebrile. Awaiting further recommendations from hand surgery. Will continue IV antibiotics. Objective Vitals Vital Signs Date Time Temp Pulse Resp B/P (MAP) Pulse Ox O2 Delivery O2 Flow Rate FiO2 09/05/17 08:00 96.0 60 15 116/75 (89) 99 09/05/17 07:09 18 09/05/17 05:12 09/05/17 00:13 97.9 60 20 112/69 (83) 98 09/04/17 21:11 97.4 65 18 113/68 (83) 97 09/04/17 20:46 18 09/04/17 20:24 09/04/17 20:05 85 16 105/66 (79) 100 Room Air 09/04/17 17:46 97.6 52 16 85/58 (67) 98 Room Air 09/04/17 15:56 56 20 98/53 (68) 96 Room Air 09/04/17 15:17 98 Room Air 09/04/17 15:17 98 Room Air 09/04/17 14:20 97.4 65 16 128/67 (87) 100 I/O 09/04/17 09/04/17 09/04/17 09/05/17 09/05/17 09/05/17 07:00 15:00 23:00 07:00 15:00 23:00 Intake Total 350 ml Balance 350 ml Intake IV Total 350 ml # Voids 2 1 # Bowel Movements 0 Result Diagram: 09/05/17 0725 09/05/17 0725 Imaging Last Impressions Hand X-Ray 09/04/17 0000 Signed Impressions: Service Date/Time: Tuesday, September 05, 2017 05:50 - CONCLUSION: Nonspecific soft tissue swelling medially of the right and. No bony abnormality demonstrated. Kayode Stevenson MD Objective Remarks GENERAL: Well-developed, well-nourished patient in NAD. SKIN: Right hand with bandage, status post I&D at bedside of right hand wound. No drainage or bleeding. HEAD: Normocephalic. Atraumatic. EYES: Pupils equal and round. No scleral icterus. No injection or drainage. ENT: No nasal bleeding or discharge. Mucous membranes pink and moist. NECK: Supple. Trachea midline. CARDIOVASCULAR: Regular rate and rhythm. S1, S2 noted. No murmur appreciated. RESPIRATORY: No accessory muscle use. Clear to auscultation. Breath sounds equal bilaterally. GASTROINTESTINAL: Abdomen soft, non-tender, nondistended. Normoactive bowel sounds x4. MUSCULOSKELETAL: No obvious deformities. Extremities without clubbing, cyanosis , or edema. NEUROLOGICAL: Awake and alert. No obvious cranial nerve deficits. Motor grossly within normal limits. 5/5 muscle strength in bilateral upper and lower extremities. Normal speech. PSYCHIATRIC: Appropriate mood and affect; insight and judgment normal. A/P Problem List: (1) Abscess of right hand ICD Code: L02.511 - Cutaneous abscess of right hand Status: Acute (2) IV drug abuse ICD Code: F19.10 - Other psychoactive substance abuse, uncomplicated Status: Acute Assessment and Plan This is a 32-year-old female patient with a known medical history of IV drug abuse and hepatitis C who presented to the ED with complaints of right hand pain , erythema and swelling. Abscess of right hand secondary to recent IV drug injection History of IV drug abuse Patient does not meet sepsis criteria. No leukocytosis. Afebrile. Continue to monitor. Blood cultures negative to date, continued to follow growth. Wound culture showing MRSA and gram-negative wilmar, continue IV antibiotics. Await final growth and MAC. Blood pressure labile, keep map above 65. Ensure hydration, NS @ 100 mls/ hour. Continue IV antibiotics, vancomycin and ceftriaxone IV. Added lactobacillus. Control pain, [place] p.o. available as needed per pain scale. Hand surgeon consulted, appreciate input & recommendations. Status post I&D at bedside in ED. Hand dressed, no bleeding or drainage noted. Continue to monitor. Orders for right arm elevation. DVT prophylaxis: SCDs. Ambulation. Marleen Mondragon Sep 05, 2017 12:46
[2017-09-05] MEDS: cefTRIAXone INJ 1,000 MG in SODIUM CHLORIDE 0.9% INJ 100 ML IV SCH (13:55)
[2017-09-05 16:18] VITALS: BP 113/78; PULSE 54; RESP 16; TEMP 97.9; O2SAT 98
[2017-09-05 20:00] VITALS: BP 114/70; PULSE 79; RESP 18; RESP 20; TEMP 98.1; O2SAT 95
[2017-09-05] MEDS ORDERED: REMOVE OLD PATCH T-DERMAL SCH (21:00)
[2017-09-05] MEDS: traZODone HCL 50 MG TAB PO SCH (22:18)
[2017-09-06] VITALS: BP 131/77; PULSE 72; RESP 20; TEMP 97.9; O2SAT 96
[2017-09-06] MEDS: VANCOMYCIN 1 GM/200 ML PREMIX IV SCH (05:17)
[2017-09-06] MEDS ORDERED: PHARMACY ORDERED LAB ONE (05:45)
[2017-09-06] MEDS: ACETAMINOPHEN/HYDROcodone 325 MG/10 MG TAB PO PRN ×4 (06:06→18:41)
[2017-09-06 06:49] LABS: CREATININE 0.64 MG/DL (0.50-1.00)
[2017-09-06 07:50] VITALS: BP 122/59; PULSE 50; RESP 20; TEMP 97; O2SAT 93
--- NOTE | 2017-09-06 08:41 | MB ---
cc: Scott Herring MD DATE OF CONSULT: 09/04/2017 The patient is a 32-year-old female who injected heroin into the dorsal aspect of her right hand several days ago, and had a significant infection with a large eschar formed. The Emergency Room staff debrided it, at my request, while I was in the Operating Room and were able to get a wound culture and did a very nice job in cleaning the wound up. PAST MEDICAL HISTORY: Denied but according to the computer, hepatitis C, headache, and anxiety. PAST SURGICAL HISTORY: Right knee surgery. MEDICATIONS: Adderall, Xanax, Celexa. ALLERGIES: PENICILLIN. FAMILY HISTORY: Noncontributory. SOCIAL HISTORY: Smokes a pack per day of cigarettes, occasional alcohol use. No x-rays were done, so I have ordered x-rays. PHYSICAL EXAMINATION: GENERAL: The patient is well-developed, well-nourished, in no apparent distress. She is awake, alert, and oriented to person, place, and time. VITAL SIGNS: Temperature is 97.6, blood pressure is 85/58, heart rate 52, respiratory rate 16. Pulse ox is 98% on room air. HEENT: Normocephalic, atraumatic. Pupils equal and round. LUNGS: Respiratory effort is normal. She is very pleasant. EXTREMITIES: Examination of the right upper extremity reveals full active range of motion, mild edema in the hand, minimal erythema, no cellulitis. There is a silver dollar-sized wound with small necrotic tissue and skin remaining. The wound is open, it does expose extensive tendon. There is no evidence of any lymphangitic streaking. There is no purulence that could be expressed, at this time. There is no epitrochlear or axillary adenopathy. The patient's gait is not able to be assessed as she is lying in a hospital bed. IMPRESSION: 1. Abscess. 2. Soft tissue infection with open wound, right hand. PLAN: Is to start doing wound care and dressing changes as well as IV antibiotics aggressively and strict elevation of the hand. I explained all of this to the patient and went over it with Dr. Wang. The patient understands and agrees and wishes to proceed. She knows that this may progress to the point of infection but hopefully not. MD GILBERT Welch/EG , 08:13 PM , 05:24 AM
[2017-09-06] MEDS: NICOTINE 14 MG/24 HR PATCH T-DERMAL SCH (08:44)
[2017-09-06] MEDS: LACTOBACILLUS ACIDOPHILUS TAB PO SCH ×3 (08:44→17:29)
[2017-09-06] MEDS: SODIUM CHLORIDE 0.9% FLUSH 10 ML FLUSH IV FLUSH SCH (08:44)
[2017-09-06] MEDS: SODIUM CHLOR 0.9% 1000 ML INJ 1,000 ML IV SCH (08:46)
[2017-09-06 11:50] VITALS: BP 138/77; PULSE 58; RESP 20; TEMP 96.3; O2SAT 97
[2017-09-06] MEDS: cefTRIAXone INJ 1,000 MG in SODIUM CHLORIDE 0.9% INJ 100 ML IV SCH (13:31)
--- NOTE | 2017-09-06 14:07 | HHI.PR ---
Subjective Remarks Follow-up right hand wound. Patient seen and examined lying in bed comfortably eager to go home. Denies any pain. Continued antibiotics. Wound culture growth noted. Awaiting hand surgeon to make further final recommendations for treatment. Continued dressing changes. Patient denies any numbness or tingling to right hand. Afebrile. Objective Vitals Vital Signs Date Time Temp Pulse Resp B/P (MAP) Pulse Ox O2 Delivery O2 Flow Rate FiO2 09/06/17 11:50 96.3 58 20 138/77 (97) 97 09/06/17 07:50 97.0 50 20 122/59 (80) 93 09/06/17 07:06 20 09/06/17 00:00 97.9 72 20 131/77 (95) 96 09/05/17 20:00 98.1 79 20 114/70 (85) 95 09/05/17 20:00 18 09/05/17 16:18 97.9 54 16 113/78 (90) 98 I/O 09/05/17 09/05/17 09/05/17 09/06/17 09/06/17 09/06/17 07:00 15:00 23:00 07:00 15:00 23:00 Intake Total 340 ml 986 ml Balance 340 ml 986 ml Intake Oral 240 ml 240 ml IV Total 100 ml 746 ml # Voids 2 2 1 # Bowel Movements 0 Result Diagram: 09/05/17 0725 09/06/17 0510 Imaging Last Impressions Hand X-Ray 09/04/17 0000 Signed Impressions: Service Date/Time: Tuesday, September 05, 2017 05:50 - CONCLUSION: Nonspecific soft tissue swelling medially of the right and. No bony abnormality demonstrated. Kayode Stevenson MD Objective Remarks GENERAL: Well-developed, well-nourished patient in [facility]. SKIN: Right hand with bandage, status post I&D at bedside of right hand wound. No drainage or bleeding. HEAD: Normocephalic. Atraumatic. EYES: Pupils equal and round. No scleral icterus. No injection or drainage. ENT: No nasal bleeding or discharge. Mucous membranes pink and moist. NECK: Supple. Trachea midline. CARDIOVASCULAR: Regular rate and rhythm. S1, S2 noted. No murmur appreciated. RESPIRATORY: No accessory muscle use. Clear to auscultation. Breath sounds equal bilaterally. GASTROINTESTINAL: Abdomen soft, non-tender, nondistended. Normoactive bowel sounds x4. MUSCULOSKELETAL: No obvious deformities. Extremities without clubbing, cyanosis , or edema. NEUROLOGICAL: Awake and alert. No obvious cranial nerve deficits. Motor grossly within normal limits. 5/5 muscle strength in bilateral upper and lower extremities. Normal speech. PSYCHIATRIC: Appropriate mood and affect; insight and judgment normal. A/P Problem List: (1) Abscess of right hand ICD Code: L02.511 - Cutaneous abscess of right hand Status: Acute (2) IV drug abuse ICD Code: F19.10 - Other psychoactive substance abuse, uncomplicated Status: Acute Assessment and Plan This is a 32-year-old female patient with a known medical history of IV drug abuse and hepatitis C who presented to the ED with complaints of right hand pain , erythema and swelling. Abscess of right hand secondary to recent IV drug injection History of IV drug abuse Patient does not meet sepsis criteria. No leukocytosis. Afebrile. Continue to monitor. Blood cultures negative to date, continued to follow growth. Wound culture showing MRSA and gram-negative wilmar, continue IV antibiotics. Await final growth. Blood pressure labile, keep map above 65. Will DC IV fluids. Patient tolerating p.o. intake. Continue IV antibiotics, vancomycin and Levaquin. added lactobacillus. Control pain, [place] p.o. available as needed per pain scale. Hand surgeon consulted, appreciate input & recommendations. Status post I&D at bedside in ED. Hand dressed, no bleeding or drainage noted. Continue to monitor. Orders for right arm elevation. Patient counseled on drug cessation and importance in quitting. Tobacco abuse: Encouraged cessation. Nicotine patch offered. DVT prophylaxis: SCDs. Ambulation. Marleen Mondragon Sep 06, 2017 14:07
[2017-09-06] MEDS ORDERED: LEVOFLOXACIN 750 MG TAB PO SCH (15:00)
[2017-09-06] MEDS ORDERED: VANCOMYCIN INJ 1,250 MG in SODIUM CHLOR 0.9% 250 ML INJ 250 ML IV SCH (15:00)
[2017-09-06 15:50] VITALS: BP 147/77; PULSE 58; RESP 20; TEMP 97; O2SAT 98
[2017-09-06 16:44] VITALS: RESP 20
[2017-09-06] MEDS ORDERED: DOXY1CAP91 PO (17:33)
[2017-09-06] MEDS ORDERED: BACT800T5 PO (17:33)
--- NOTE | 2017-09-06 17:35 | HHI.PR ---
Subjective Remarks no newcomplaints Objective Vital Signs Date Time Temp Pulse Resp B/P (MAP) Pulse Ox O2 Delivery O2 Flow Rate FiO2 09/06/17 16:44 20 09/06/17 15:50 97.0 58 20 147/77 (100) 98 09/06/17 11:50 96.3 58 20 138/77 (97) 97 09/06/17 07:50 97.0 50 20 122/59 (80) 93 09/06/17 00:00 97.9 72 20 131/77 (95) 96 09/05/17 20:00 98.1 79 20 114/70 (85) 95 09/05/17 20:00 18 I/O 09/05/17 09/05/17 09/05/17 09/06/17 09/06/17 09/06/17 07:00 15:00 23:00 07:00 15:00 23:00 Intake Total 340 ml 986 ml 1900 ml Balance 340 ml 986 ml 1900 ml Intake Oral 240 ml 240 ml IV Total 100 ml 746 ml 1900 ml # Voids 2 2 1 # Bowel Movements 0 Result Diagram: 09/05/17 0725 09/06/17 0510 Objective Remarks exam right hand wound is cleaning up nicely and starting to contract no cellulitis or edema or erythema full AROM NVI throughout granulation tissue present AAxO x 3 resp effort normal NC AT Assessment and Plan Problem List: (1) Abscess of right hand ICD Codes: L02.511 - Cutaneous abscess of right hand Status: Acute Plan: OK to d/c home on PO abx f/u with PMD continue wound care as prescribed here in the [facility] Scott Herring III, MD Sep 06, 2017 17:35
--- NOTE | 2017-09-06 17:58 | HHI.DCPOC ---
Discharge Care Plan Diagnosis: (1) Abscess of right hand (2) IV drug abuse Goals to Promote Your Health * To prevent worsening of your condition and complications * To maintain your health at the optimal level Directions to Meet Your Goals Take your medications as prescribed Follow your dietary instruction Follow activity as directed Keep your appointments as scheduled Take your immunizations and boosters as scheduled If your symptoms worsen call your PCP, if no PCP go to Urgent Care Center or Emergency Room Smoking is Dangerous to Your Health. Avoid second hand smoke Call the 24-hour hour crisis hotline for domestic abuse at Marleen Mondragon Sep 06, 2017 17:58
[2017-09-06] MEDS ORDERED: CHLO TOPICAL (18:00)
[2017-09-06] MEDS ORDERED: CHLORHEXIDINE GLUCONATE 4% SOLN 120 ML BTL TOPICAL SCH (18:00)
[2017-09-08] MEDS ORDERED: PHARMACY ORDERED LAB ONE (02:45)
== END 2017-09-06 18:45 | disposition home or self-care (01) | DRG 603 ==
LOC: PHED 14:17 → PHEDA 16:02 → PH3A 20:22 → PH3B 09-05 15:58
PROVIDERS: ADMIT Hospitalist; ATTEND Hospitalist
DX: L02.511 Cutaneous abscess of right hand (principal); F32.9 Major depressive disorder, single episode, unspecified; B19.20 Unspecified viral hepatitis C without hepatic coma; F41.9 Anxiety disorder, unspecified; F11.10 Opioid abuse, uncomplicated; F17.210 Nicotine dependence, cigarettes, uncomplicated
CPT/HCPCS: 73130; 80053; 80202; 82565; 83605; 85025; 86403; 87040; 87070; 87077; 87147; 87186; 87205; 96365; 96375; J0696; J2270; J3370; J7030; J7050

== ENCOUNTER 2017-12-01 17:37 | Inpatient (IN) | payer MEDICAID ==
[~2017-12-01] VITALS: Ht 167.6 cm; Wt 68.5 kg
[~2017-12-01 17:37] MED LIST changes: +ADDE20 PO; -AZIT250T3 PO; +BACT800T5 PO; -BENZ100 PO; +CHLO TOPICAL; +DOXY1CAP91 PO; +TRAZ1TAB14 PO
[2017-12-01 17:40] VITALS: BP 140/66; PULSE 109; RESP 18; TEMP 97.7; O2SAT 98
[2017-12-01] MEDS ORDERED: SODIUM CHLORIDE 0.9% FLUSH 10 ML FLUSH IVF PRN (18:15)
--- NOTE | 2017-12-01 18:58 | PD ---
HPI Chief Complaint: Back/ Neck Pain or Injury Time Seen by Provider: 17:51 Travel History International Travel<30 days: No Contact w/Intl Traveler<30days: No Traveled to known affect area: No History of Present Illness HPI This is a 32-year-old female here with nontraumatic neck pain 1 day. She reports she awoke yesterday with pain to the posterior aspect of her neck. The pain has been persistent and reported as constant aching. Denies injury or trauma. Denies fever or chills. No paresthesia or weakness of the extremities. Pain is constant and worse with range of motion of the neck. She has history of IVDA. She reports she is not currently using. Symptom severity is moderate. No alleviating factors. PFSH Past Medical History Arthritis: No Asthma: No Autoimmune Disease: No Anxiety: Yes Depression: Yes Cancer: No Cardiovascular Problems: No Chemotherapy: No Cerebrovascular Accident: No Diabetes: No Diminished Hearing: No Endocrine: No Genitourinary: No Headaches: Yes Hepatitis: Yes (hepatitis C) Hypertension: No Immune Disorder: No Kidney Stones: No Musculoskeletal: Yes Neurologic: No Psychiatric: Yes Reproductive: Yes (" I GET MY PERIOD ONCE OR TWICE A YEAR") Respiratory: No Immunizations Current: Yes Migraines: Yes (D/T SINUS INFECTIONS AMD ALLERGIES) Radiation Therapy: No Renal Failure: Yes Sickle Cell Disease: No Thyroid Disease: No Influenza Vaccination: No ?: Not LMP: TODAY : 3 Para: 2 Miscarriage: 1 Past Surgical History Other Surgery: Yes (BROKEN ARM REPAIR 1997) Social History Alcohol Use: Yes (SOCIALLY) Tobacco Use: Yes (1/2 PPD) Substance Use: No (hx of iv drug use) Allergies-Medications (Allergen,Severity, Reaction): Coded Allergies: No Known Allergies (Unverified , 12/01/17) Reported Meds & Prescriptions Reported Meds & Active Scripts Active Operand Chlorhexidine Gluconate Topical (Chlorhexidine Gluconate) 4% Liq 1 Applic TOPICAL QID 30 Days Wash hands with Hibiclens. Use Hibiclens FOUR TIMES PER DAY to right hand wound, change dressing FOUR TIMES PER DAY. Bactrim DS (Sulfamethoxazole-Trimethoprim) 800-160 Mg Tab 1 Tab PO BID 10 Days Doxycycline (Doxycycline (Monohydrate)) 100 Mg Cap 1 Cap PO BID 10 Days Reported Trazodone (Trazodone HCl) 150 Mg Tablet 150 Mg PO HS Abilify (Aripiprazole) 2 Mg Tab 2 Mg PO DAILY Celexa (Citalopram Hydrobromide) 10 Mg Tab 10 Mg PO DAILY Adderall (Amphetamine-Dextroamphetamine) 20 Mg Tab 20 Mg PO BID Avoid late evening doses. Space doses at least 4 to 6 hours if more than once/day dosing. Xanax (Alprazolam) 2 Mg Tab 2 Mg PO Q8H Review of Systems Except as stated in HPI: all other systems reviewed are Neg General / Constitutional: No: Fever Eyes: No: Visual changes HENT: No: Headaches Cardiovascular: No: Chest Pain or Discomfort Respiratory: No: Shortness of Breath Gastrointestinal: No: Abdominal Pain Genitourinary: No: Dysuria Skin: No Rash Physical Exam Narrative GENERAL: Alert and well-appearing 32-year-old female. SKIN: Warm and dry. No rash HEAD: Atraumatic. Normocephalic. EYES: Pupils equal and round. No scleral icterus. No injection or drainage. ENT: No nasal bleeding or discharge. Mucous membranes pink and moist. NECK: Trachea midline. No JVD. +TTP cervical midline spine. No step-off deformity. No swelling, warmth, erythema over the spine. CARDIOVASCULAR: Regular rate and rhythm. RESPIRATORY: No accessory muscle use. Clear to auscultation. Breath sounds equal bilaterally. GASTROINTESTINAL: Abdomen soft, non-tender, nondistended. MUSCULOSKELETAL: Extremities without clubbing, cyanosis, or edema. No obvious deformities. NEUROLOGICAL: Awake and alert. No obvious cranial nerve deficits. Motor grossly within normal limits. 5/5 muscle strength in the arms and legs. Normal sensation in distal extremities. Normal speech. PSYCHIATRIC: Appropriate mood and affect; insight and judgment normal. Data Data Last Documented VS Vital Signs Date Time Temp Pulse Resp B/P (MAP) Pulse Ox O2 Delivery O2 Flow Rate FiO2 12/01/17 17:40 97.7 109 18 140/66 (90) 98 Orders Orders Basic Metabolic Panel (Bmp) (12/01/17 18:03) Complete Blood Count With Diff (12/01/17 18:03) Iv Access Insert/Monitor (12/01/17 18:03) Sodium Chloride 0.9% Flush (Ns Flush) (12/01/17 18:15) Westergren Sedimentation Rate (12/01/17 18:03) C-Reactive Protein (Crp) (12/01/17 18:03) Ed Urine Pregnancytest Poc (12/01/17 18:03) Mri C Spine W&W/O Contrast (12/01/17 ) MDM Medical Decision Making Medical Screen Exam Complete: Yes Emergency Medical Condition: Yes Differential Diagnosis Spinal epidural abscess, cervical strain, discitis Narrative Course 32-year-old female with nontraumatic neck pain 1 day. Patient has history of IVDA therefore there is concern of epidural abscess. IV access, labs, imaging ordered and pending. Anai Stephens Dec 01, 2017 18:58
[2017-12-01 19:34] LABS: AUTOMATED NEUTROPHIL # 5.4 TH/MM3 (1.8-7.7); BASOPHIL # 0.1 TH/MM3 (0-0.2); BASOPHIL % 0.7 % (0.0-2.0); EOSINOPHIL # 0.2 TH/MM3 (0-0.4); EOSINOPHIL % 2.7 % (0.0-4.0); HEMATOCRIT 37.8 % (35.0-46.0); HEMOGLOBIN 13.1 GM/DL (11.6-15.3); LYMPH % 20.6 % (9.0-44.0); LYMPHOCYTE # 1.6 TH/MM3 (1.0-4.8); MEAN CELL VOLUME 85.6 FL (80.0-100.0); MEAN CORPUSCULAR HEMOGLOBIN 29.6 PG (27.0-34.0); MEAN CORPUSCULAR HGB CONC 34.6 % (32.0-36.0); MEAN PLATELET VOLUME 8.8 FL (7.0-11.0); MONO % 6.9 % (0.0-8.0); MONOCYTE # 0.5 TH/MM3 (0-0.9); NEUT % 69.1 % (16.0-70.0); PLATELET COUNT 201 TH/MM3 (150-450); RED BLOOD COUNT 4.42 MIL/MM3 (4.00-5.30); RED CELL DISTRIBUTION WIDTH 15.7 % (11.6-17.2); WHITE BLOOD COUNT 7.9 TH/MM3 (4.0-11.0)
[2017-12-01 19:46] LABS: CALCIUM 8.6 MG/DL (8.5-10.1)
[2017-12-01 19:47] LABS: BICARBONATE 29.7 MEQ/L (21.0-32.0)
[2017-12-01 19:50] LABS: CREATININE 0.68 MG/DL (0.50-1.00)
[2017-12-01 19:59] LABS: C-REACTIVE PROTEIN 1.13 MG/DL (0.00-0.30)
[2017-12-01] MEDS ORDERED: GADODIAMIDE PF 287 MG/ML 5 ML VIAL (for RAD MRI) IVCONTRAST ONE (20:15)
[2017-12-01] MEDS ORDERED: KETOROLAC TROMETHAMINE 30 MG/ML (IVP) VIAL IV PUSH ONE (20:30)
--- NOTE | 2017-12-01 20:31 | RADRPT ---
EXAM DATE: 12/01/2017 8:25 PM EDT AGE/SEX: 32 years / Female INDICATIONS: Abscess. Neck pain. No injury. CLINICAL DATA: This is the patient's initial encounter. Patient reports that signs and symptoms have been present for 1 day and indicates a pain score of 6/10. MEDICAL/SURGICAL HISTORY: Hepatitis C. None. COMPARISON: None. TECHNIQUE: Multiplanar, multisequence MRI examination of the cervical spine was performed without an d with 13 ml Omniscan (gadodiamide) contrast as a single exam dose. FINDINGS: Vertebrae: Normal vertebral body height. Homogeneous marrow signal. Alignment: Normal. Cord: Normal configuration and signal. Post Fossa: The cerebellar tonsils are normal in position. Post Contrast: Heterogeneous enhancement involving the dorsal paraspinal soft tissues extending from C3 to C7. Elevated T2 signal involving the dorsal soft tissues extending from C2 to C7. There is no fluid colle ction or abscess. No extension into the central canal.. C2-C3: The thecal sac has a normal configuration. There is no evidence of disc herniation or spinal canal stenosis. The neural foramina are patent bilaterally. C3-C4: The thecal sac has a normal configuration. There is no evidence of disc herniation or spinal canal stenosis. The neural foramina are patent bilaterally. C4-C5: The thecal sac has a normal configuration. There is no evidence of disc herniation or spinal canal stenosis. The neural foramina are patent bilaterally. C5-C6: The thecal sac has a normal configuration. There is no evidence of disc herniation or spinal canal stenosis. The neural foramina are patent bilaterally. C6-C7: The thecal sac has a normal configuration. There is no evidence of disc herniation or spinal canal stenosis. The neural foramina are patent bilaterally. C7-T1: No epidural impressions seen. CONCLUSION: 1. Abnormal signal and enhancement involving the dorsal soft tissues extending from C2 to C7 consist ent with an inflammatory or infectious process. There is no abscess or fluid collection. No involveme nt of the central canal observed. Electronically signed by: Mikel Thornton MD 12/01/2017 8:30 PM EDT
[2017-12-01 20:37] LABS: BILIRUBIN, URINE NEG (NEG); BLOOD, URINE LARGE (NEG); GLUCOSE,URINE 100 mg/dL (NEG); KETONE, URINE NEG (NEG); NITRITE,URINE POS (NEG); URINE COLOR YELLOW (YELLW/STRAW); URINE LEUKOCYTE ESTERASE LARGE (NEG)
[2017-12-01 20:44] LABS: BACTERIA, URINE MANY /hpf; RBC, URINE 0-3 /hpf (0-3); WHITE BLOOD CELL CLUMPS FEW
[2017-12-01] MEDS ORDERED: VANCOMYCIN INJ 1,000 MG in SODIUM CHLOR 0.9% 250 ML INJ 250 ML IV SCH (20:45)
[2017-12-01] MEDS ORDERED: PIPERACIL-TAZO 3.375 GM PREMIX 50 ML IV ONE (20:45)
--- NOTE | 2017-12-01 20:45 | PD ---
Physical Exam Narrative I, Dr. Bernstein, have reviewed the advance practice practitioner's documentation and am in agreement, met with the patient face to face, made the diagnosis, and the medical decision making was done by me. *My assessment and Findings: Epidural abscess vs. paraspinal abscess vs. osteomyelitis vs. musculoskeletal pain 32yo F with PMH of Hep C and IVDA here with c/o neck pain for 1 day. Denies any trauma, fever, chest pain, sob, n/v, abdominal pain, focal weakness or numbness. Labs reviewed, no leukocytosis. H/H normal. Elevated C-reactive protein. BMP unremarkable. UA also positive for nitrite. MRI cervical spine showed abnormal signal and enhancement involving the dorsal soft tissue extending from C2-C7 consistent with inflammatory or infectious process. No abscess or fluid collection. No involvement of the central canal observed. Blood cultures drawn, and pt placed on broad spectrum antibiotics. I did discuss with neurosurgeon Dr. Arriaga to makes sure there is no surgical intervention and he said no surgical intervention and to admit to medicine and IV antibiotics. Pt is well appearing and has pain midline cervical spine but also diffusely in her bilateral neck. No focal neurologic deficits. Given the abnormal MRI result, will admit for IV antibiotics. Discussed with Val and accepted to her service. Data Data Last Documented VS Vital Signs Date Time Temp Pulse Resp B/P (MAP) Pulse Ox O2 Delivery O2 Flow Rate FiO2 12/01/17 17:40 97.7 109 18 140/66 (90) 98 Orders Orders Basic Metabolic Panel (Bmp) (12/01/17 18:03) Complete Blood Count With Diff (12/01/17 18:03) Iv Access Insert/Monitor (12/01/17 18:03) Sodium Chloride 0.9% Flush (Ns Flush) (12/01/17 18:15) Westergren Sedimentation Rate (12/01/17 18:03) C-Reactive Protein (Crp) (12/01/17 18:03) Ed Urine Pregnancytest Poc (12/01/17 18:03) Mri C Spine W&W/O Contrast (12/01/17 ) Ketorolac Inj (Toradol Inj) (12/01/17 20:30) Gadodiamide Pf Inj (Omniscan Pf Inj) (12/01/17 20:15) Urinalysis - C+S If Indicated (12/01/17 20:27) Urine Culture (12/01/17 19:36) Blood Culture (12/01/17 20:45) Piperacil-Tazo 3.375 Gm Premix (Zosyn 3. (12/01/17 20:45) Piperacil-Tazo 3.375 Gm Premix (Zosyn 3. (12/02/17 03:00) Vancomycin Consult Pharmacy (Vancomycin (12/01/17 21:00) Morphine Inj (Morphine Inj) (12/01/17 21:00) Consult Infectious Disease (12/01/17 ) Admit To Inpatient (12/01/17 ) Vital Signs (Adult) Q4H (12/01/17 20:50) Activity Oob With Assistance (12/01/17 20:50) Diet Regular Basic (12/02/17 Breakfast) Sodium Chloride 0.9% Flush (Ns Flush) (12/01/17 21:00) Sodium Chloride 0.9% Flush (Ns Flush) (12/01/17 21:00) Acetaminophen (Tylenol) (12/01/17 21:00) Ondansetron Inj (Zofran Inj) (12/01/17 21:00) Basic Metabolic Panel (Bmp) (12/02/17 06:00) Complete Blood Count With Diff (12/02/17 06:00) Pt Request For Service (12/01/17 20:50) Case Management Consult (12/01/17 20:50) Naloxone Inj (Narcan Inj) (12/01/17 21:00) Docusate Sodium-Senna (Dhara-Colace) (12/01/17 21:00) Magnesium Hydroxide Liq (Milk Of Magnesi (12/01/17 21:00) Sennosides (Senokot) (12/01/17 21:00) Bisacodyl Supp (Dulcolax Supp) (12/01/17 21:00) Lactulose Liq (Lactulose Liq) (12/01/17 21:00) Inpatient Certification (12/01/17 ) Admit Order (Ed Use Only) (12/01/17 20:53) Vancomycin Inj (Vancomycin Inj) (12/01/17 22:00) Labs Laboratory Tests Test 12/01/17 19:25 12/01/17 19:36 White Blood Count 7.9 TH/MM3 Red Blood Count 4.42 MIL/MM3 Hemoglobin 13.1 GM/DL Hematocrit 37.8 % Mean Corpuscular Volume 85.6 FL Mean Corpuscular Hemoglobin 29.6 PG Mean Corpuscular Hemoglobin Concent 34.6 % Red Cell Distribution Width 15.7 % Platelet Count 201 TH/MM3 Mean Platelet Volume 8.8 FL Neutrophils (%) (Auto) 69.1 % Lymphocytes (%) (Auto) 20.6 % Monocytes (%) (Auto) 6.9 % Eosinophils (%) (Auto) 2.7 % Basophils (%) (Auto) 0.7 % Neutrophils # (Auto) 5.4 TH/MM3 Lymphocytes # (Auto) 1.6 TH/MM3 Monocytes # (Auto) 0.5 TH/MM3 Eosinophils # (Auto) 0.2 TH/MM3 Basophils # (Auto) 0.1 TH/MM3 CBC Comment DIFF FINAL Differential Comment Erythrocyte Sedimentation Rate 8 mm/hr Blood Urea Nitrogen 8 MG/DL Creatinine 0.68 MG/DL Random Glucose 83 MG/DL Calcium Level 8.6 MG/DL Sodium Level 137 MEQ/L Potassium Level 4.3 MEQ/L Chloride Level 103 MEQ/L Carbon Dioxide Level 29.7 MEQ/L Anion Gap 4 MEQ/L Estimat Glomerular Filtration Rate 100 ML/MIN C-Reactive Protein 1.13 MG/DL Urine Color YELLOW Urine Turbidity SL CLOUDY Urine pH 7.0 Urine Specific [place] 1.010 Urine Protein NEG mg/dL Urine Glucose (UA) 100 mg/dL Urine Ketones NEG mg/dL Urine Occult Blood LARGE Urine Nitrite POS Urine Bilirubin NEG Urine Urobilinogen 0.2 MG/DL Urine Leukocyte Esterase LARGE Urine RBC 0-3 /hpf Urine WBC 50-99 /hpf Urine WBC Clumps FEW Urine Squamous Epithelial Cells 6-8 /hpf Urine Bacteria MANY /hpf Microscopic Urinalysis Comment CULTURE INDICATED MDM Supervised Visit with GLORIA: Yes Diagnosis Primary Impression: Neck infection Admitting Information Admitting Physician Requests: Observation Gila Bernstein DO Dec 01, 2017 20:45
[2017-12-01] MEDS ORDERED: ONDANSETRON HCL 4 MG/2 ML VIAL IVP PRN (21:00)
[2017-12-01] MEDS ORDERED: Vancomycin Consult Pharmacy 1 EA OTHER SCH (21:00)
[2017-12-01] MEDS ORDERED: LACTULOSE SYRUP 20 GM/30 ML CUP PO PRN (21:00)
[2017-12-01] MEDS ORDERED: MORPHINE SULFATE 2 MG/ML SYRINGE IV PUSH PRN (21:00)
[2017-12-01] MEDS ORDERED: MAGNESIUM HYDROXIDE SUSP 30 ML CUP PO PRN (21:00)
[2017-12-01] MEDS ORDERED: ACETAMINOPHEN 325 MG TAB PO PRN (21:00)
[2017-12-01] MEDS: DOCUSATE SODIUM 50 MG/SENNA 8.6 MG TAB PO SCH (21:00)
[2017-12-01] MEDS ORDERED: SODIUM CHLORIDE 0.9% FLUSH 10 ML FLUSH IV FLUSH PRN (21:00)
[2017-12-01] MEDS ORDERED: SENNOSIDES 8.6 MG TAB PO PRN (21:00)
[2017-12-01] MEDS: SODIUM CHLORIDE 0.9% FLUSH 10 ML FLUSH IV FLUSH SCH (21:00)
[2017-12-01] MEDS ORDERED: NALOXONE HCL 0.4 MG/ML AMP IV PUSH PRN (21:00)
[2017-12-01] MEDS ORDERED: BISACODYL 10 MG SUPP RECTAL PRN (21:00)
[2017-12-01 21:50] VITALS: BP 100/64; PULSE 68; RESP 15; O2SAT 97
[2017-12-01 22:21] VITALS: BP 101/52; PULSE 78; RESP 20; TEMP 97.4; O2SAT 98
[2017-12-01] MEDS: VANCOMYCIN INJ 1,000 MG in SODIUM CHLOR 0.9% 250 ML INJ 250 ML IV SCH (23:33)
[2017-12-02] MEDS: PIPERACIL-TAZO 3.375 GM PREMIX 50 ML IV SCH ×2 (04:00→10:36)
[2017-12-02] MEDS: VANCOMYCIN INJ 1,000 MG in SODIUM CHLOR 0.9% 250 ML INJ 250 ML IV SCH (06:11)
[2017-12-02 06:46] LABS: AUTOMATED NEUTROPHIL # 6.5 TH/MM3 (1.8-7.7); BASOPHIL # 0.1 TH/MM3 (0-0.2); BASOPHIL % 0.9 % (0.0-2.0); EOSINOPHIL # 0.2 TH/MM3 (0-0.4); EOSINOPHIL % 2.5 % (0.0-4.0); HEMATOCRIT 36.8 % (35.0-46.0); HEMOGLOBIN 12.7 GM/DL (11.6-15.3); LYMPH % 12.2 % (9.0-44.0); MEAN CORPUSCULAR HEMOGLOBIN 29.7 PG (27.0-34.0); MEAN CORPUSCULAR HGB CONC 34.5 % (32.0-36.0); MONO % 4.4 % (0.0-8.0); MONOCYTE # 0.4 TH/MM3 (0-0.9); PLATELET COUNT 200 TH/MM3 (150-450); RED BLOOD COUNT 4.27 MIL/MM3 (4.00-5.30); RED CELL DISTRIBUTION WIDTH 16.1 % (11.6-17.2); WHITE BLOOD COUNT 8.2 TH/MM3 (4.0-11.0)
[2017-12-02 06:56] LABS: CALCIUM 8.3 MG/DL (8.5-10.1)
[2017-12-02 06:57] LABS: BICARBONATE 25.8 MEQ/L (21.0-32.0)
[2017-12-02 07:00] LABS: CREATININE 0.66 MG/DL (0.50-1.00)
[2017-12-02 08:00] VITALS: BP 91/56; PULSE 75; RESP 18; TEMP 97; O2SAT 96
[2017-12-02] MEDS: SODIUM CHLORIDE 0.9% FLUSH 10 ML FLUSH IV FLUSH SCH (10:36)
[2017-12-02] MEDS: DOCUSATE SODIUM 50 MG/SENNA 8.6 MG TAB PO SCH (10:36)
[2017-12-02] MEDS ORDERED: CIPR-9 PO (11:59)
[2017-12-02 12:00] VITALS: BP 99/58; PULSE 77; RESP 18; TEMP 97.2; O2SAT 96
--- NOTE | 2017-12-02 12:00 | HHI.DCPOC ---
Discharge Care Plan Diagnosis: (1) Neck pain Goals to Promote Your Health * To prevent worsening of your condition and complications * To maintain your health at the optimal level Directions to Meet Your Goals Take your medications as prescribed Follow your dietary instruction Follow activity as directed Keep your appointments as scheduled Take your immunizations and boosters as scheduled If your symptoms worsen call your PCP, if no PCP go to Urgent Care Center or Emergency Room Smoking is Dangerous to Your Health. Avoid second hand smoke Call the 24-hour hour crisis hotline for domestic abuse at Manuel Stallworth Dec 02, 2017 12:00
--- NOTE | 2017-12-02 13:43 | HHI.HP ---
HPI Service [facility] Primary Care Physician No Primary Care Physician Admission Diagnosis Neck infection Diagnoses: (1) Neck pain Diagnosis: Principal Chief Complaint: Neck pain Travel History International Travel<30 Days: No Contact w/Intl Traveler <30 Da: No Traveled to Known Affected Are: No History of Present Illness 32-year-old female with known history of IV drug use, hepatitis C, anxiety who presented to the hospital because acute onset of neck pain. Patient states that she was in normal state of health until 2 days ago when she was helping somebody lift something heavy from a moving van and immediately is started developing pain in the neck. It progressively got worse where she cannot turn her head at all. She states that the pain would not go away so she came to emergency department. When she arrived she indicates that she could not turn her head and had to hold her head in her hands so her head would not move because the pain was so severe. Patient had workup done emergency department and was found to have an abnormal MRI study which indicated possible inflammatory or infectious process of the cervical spine soft tissue. Given the patient's history of IV drug use it was recommended that the patient be admitted for further evaluation and management. Workup did not indicate any leukocytosis, patient has remained afebrile, upon evaluating patient this morning she is completely asymptomatic. She states that her pain completely resolved after the use of morphine and Toradol. Patient denies any recent IV drug use. Denies any paresthesia, paralysis of the upper or lower extremities. Denies any fever, chills, nausea, vomiting, diarrhea. Review of Systems Musculoskeletal: COMPLAINS OF: Neck pain Except as stated in HPI: all other systems reviewed are Neg Past Family Social History Past Medical History History of hepatitis C History of IV drug use Multiple episodes of cellulitis Anxiety Past Surgical History Right knee surgery Reported Medications Reported Meds & Active Scripts Active Cipro (Ciprofloxacin HCl) 500 Mg Tab 500 Mg PO BID 14 Days Reported Trazodone (Trazodone HCl) 150 Mg Tablet 150 Mg PO HS Abilify (Aripiprazole) 2 Mg Tab 2 Mg PO DAILY Celexa (Citalopram Hydrobromide) 10 Mg Tab 10 Mg PO DAILY Allergies: Coded Allergies: No Known Allergies (Unverified , 12/01/17) Family History Family history reviewed and there is no indication of any heart disease, lung disease, diabetes, cancer, seizure, stroke Social History Patient continues to smoke a pack a second day since she was 9 years old. Does use alcohol occasionally. Patient does have history of IV drug use with heroin. However she states that she has not used since she was admitted the last time in August 2017 Physical Exam Vital Signs Vital Signs Date Time Temp Pulse Resp B/P (MAP) Pulse Ox O2 Delivery O2 Flow Rate FiO2 12/02/17 08:00 97.0 75 18 91/56 (68) 96 12/01/17 22:48 12/01/17 22:21 97.4 78 20 101/52 (68) 98 12/01/17 21:50 68 15 100/64 (76) 97 Room Air 12/01/17 17:40 97.7 109 18 140/66 (90) 98 Physical Exam GENERAL: Well-developed, well-nourished, in no acute distress. alert and orientated HEENT: Head is normocephalic without any lesions or masses noted. Facial features are symmetric. Eyes: Pupils equal round reactive to light. Extraocular muscles are intact. Conjunctivae were clear. Oropharyngeal: Pharynx without any erythema edema. Tongue is midline without deviation. Buccal mucosa is moist without any masses or lesions NECK: Supple without any masses. Trachea midline no deviation. No JVD, no bruits are appreciated CARDIAC: Regular rhythm, regular rate. S1/S2 are heard. No murmurs gallops or rubs. LUNGS: Clear to auscultation bilaterally. No wheeze, rhonchi or rales. No use of accessory muscles on inspiration or expiration. ABDOMEN: Soft, nontender. Nondistended. Bowel sounds heard in all 4 quadrants. No organomegaly or masses. Negative rebound, negative guarding EXTREMITIES: No edema, pulses are equal bilaterally. No cyanosis or clubbing NEUROLOGY: Mood and affect appear appropriate. Cranial nerves II through XII grossly intact. Muscle strength 5/5 in upper and lower extremities bilaterally. Deep tendon reflexes are 2+ in upper and lower extremities bilaterally. CERVICAL SPINE: There is hypertonicity noted of the left-sided paracervical musculature ranging from C2 down to C7. However there is no fluctuance, no obvious infectious source. Patient has complete range of motion of the cervical spine without any discomfort or pain. There is no skin discoloration, erythema, granulation Laboratory Laboratory Tests Test 12/01/17 19:25 12/01/17 19:36 12/02/17 06:17 White Blood Count 7.9 8.2 Red Blood Count 4.42 4.27 Hemoglobin 13.1 12.7 Hematocrit 37.8 36.8 Mean Corpuscular Volume 85.6 86.0 Mean Corpuscular Hemoglobin 29.6 29.7 Mean Corpuscular Hemoglobin Concent 34.6 34.5 Red Cell Distribution Width 15.7 16.1 Platelet Count 201 200 Mean Platelet Volume 8.8 9.0 Neutrophils (%) (Auto) 69.1 80.0 Lymphocytes (%) (Auto) 20.6 12.2 Monocytes (%) (Auto) 6.9 4.4 Eosinophils (%) (Auto) 2.7 2.5 Basophils (%) (Auto) 0.7 0.9 Neutrophils # (Auto) 5.4 6.5 Lymphocytes # (Auto) 1.6 1.0 Monocytes # (Auto) 0.5 0.4 Eosinophils # (Auto) 0.2 0.2 Basophils # (Auto) 0.1 0.1 CBC Comment DIFF FINAL DIFF FINAL Differential Comment Erythrocyte Sedimentation Rate 8 Blood Urea Nitrogen 8 10 Creatinine 0.68 0.66 Random Glucose 83 97 Calcium Level 8.6 8.3 Sodium Level 137 139 Potassium Level 4.3 4.0 Chloride Level 103 107 Carbon Dioxide Level 29.7 25.8 Anion Gap 4 6 Estimat Glomerular Filtration Rate 100 104 C-Reactive Protein 1.13 Urine Color YELLOW Urine Turbidity SL CLOUDY Urine pH 7.0 Urine Specific [place] 1.010 Urine Protein NEG Urine Glucose (UA) 100 Urine Ketones NEG Urine Occult Blood LARGE Urine Nitrite POS Urine Bilirubin NEG Urine Urobilinogen 0.2 Urine Leukocyte Esterase LARGE Urine RBC 0-3 Urine WBC 50-99 Urine WBC Clumps FEW Urine Squamous Epithelial Cells 6-8 Urine Bacteria MANY Microscopic Urinalysis Comment CULTURE INDICATED Date/Time Source Procedure Growth Status 12/01/17 21:00 Blood Peripheral Aerobic Blood Culture - Preliminary NO GROWTH IN 1 DAY Resulted 12/01/17 21:00 Blood Peripheral Anaerobic Blood Culture - Preliminary NO GROWTH IN 1 DAY Resulted 12/01/17 19:36 Urine Clean Catch Urine Culture Pending Received Result Diagram: 12/02/17 0617 12/02/17 0617 Imaging Last Impressions Cervical Spine MRI 12/01/17 0000 Signed Impressions: CONCLUSION: 1. Abnormal signal and enhancement involving the dorsal soft tissues extending from C2 to C7 consistent with an inflammatory or infectious process. There is no abscess or fluid collection. No involvement of the central canal observed. Caprini VTE Risk Assessment Caprini VTE Risk Assessment: No/Low Risk (score <= 1) Caprini Risk Assessment Model Point Value = 1 Point Value = 2 Point Value = 3 Point Value = 5 Age 41-60 Minor surgery BMI > 25 kg/m2 Swollen legs Varicose veins or History of unexplained or recurrent spontaneous Oral contraceptives or hormone replacement Sepsis (< 1 month) Serious lung disease, including pneumonia (< 1 month) Abnormal pulmonary function Acute myocardial infarction Congestive heart failure (< 1 month) History of inflammatory bowel disease Medical patient at bed rest Age 61-74 Arthroscopic surgery Major open surgery (> 45 min) Laparoscopic surgery (> 45 min) Malignancy Confined to bed (> 72 hours) Immobilizing plaster cast Central venous access Age >= 75 History of VTE Family history of VTE Factor V Leiden Prothrombin [id number] Lupus anticoagulant Anticardiolipin antibodies Elevated serum homocysteine Heparin-induced thrombocytopenia Other congenital or acquired thrombophilia Stroke (< 1 month) Elective arthroplasty Hip, pelvis, or leg fracture Acute spinal cord injury (< 1 month) Prophylaxis Regimen Total Risk Factor Score Risk Level Prophylaxis Regimen 0-1 Low Early ambulation 2 Moderate Order ONE of the following: *Sequential Compression Device (SCD) *Heparin 5000 units SQ BID 3-4 Higher Order ONE of the following medications: *Heparin 5000 units SQ TID *Enoxaparin/Lovenox 40 mg SQ daily (WT < 150 kg, CrCl > 30 mL/min) *Enoxaparin/Lovenox 30 mg SQ daily (WT < 150 kg, CrCl > 10-29 mL/min) *Enoxaparin/Lovenox 30 mg SQ BID (WT < 150 kg, CrCl > 30 mL/min) AND/OR *Sequential Compression Device (SCD) 5 or more Highest Order ONE of the following medications: *Heparin 5000 units SQ TID (Preferred with Epidurals) *Enoxaparin/Lovenox 40 mg SQ daily (WT < 150 kg, CrCl > 30 mL/min) *Enoxaparin/Lovenox 30 mg SQ daily (WT < 150 kg, CrCl > 10-29 mL/min) *Enoxaparin/Lovenox 30 mg SQ BID (WT < 150 kg, CrCl > 30 mL/min) AND *Sequential Compression Device (SCD) Assessment and Plan Assessment and Plan Acute neck pain, resolved -Patient's onset of pain, mechanism of action, physical exam does correlate with inflammatory process with acute cervical paraspinal muscle strain and sprain -Patient's past medical history of IV drug use does make one believe that there might be a possibility of infectious process -MRI of the patient's cervical spine does indicate abnormal single involving the dorsal soft tissues extending from C2-C7 consistent with inflammatory or infectious process. No abscess or fluid collection, no central Canal involvement, no indication of any disc involvement or epidural involvement -Patient remains afebrile, no indication of any leukocytosis, sed rate is normal. There is a mild elevation and C-reactive protein of unknown significance. This could be related to previous cellulitis from a month ago, could be related to inflammation. Patient is currently asymptomatic -Patient was empirically started on antibiotics of vancomycin and Zosyn -Pain was controlled and now completely resolved with Toradol Urinary tract infection -Urinalysis does indicate rather significant urinary tract infection -Patient was started on vancomycin and Zosyn -We will discharge patient home on Levaquin -Continue follow-up on urinary culture to assure appropriate antibiotic use DVT prevention -Low risk, early ambulation Discharge disposition Patient indicates that she is currently asymptomatic. Denies any pain. She believes that she just pulled a muscle in her neck when she was lifting something heavy. Patient wants to go home. We will respect the patient's wishes and discharge patient home in stable condition Activity: Ad jimmy. Diet: Regular diet Medication per medication reconciliation Follow-up with primary medical doctor in 1 week Manuel Stallworth Dec 02, 2017 13:43
[2017-12-03] MEDS ORDERED: PHARMACY ORDERED LAB ONE (05:45)
== END 2017-12-02 12:47 | disposition home or self-care (01) | DRG 552 ==
LOC: PHEFT 17:37 → PHEDA 20:55 → PH3A 22:21
PROVIDERS: ADMIT Family Medicine; ATTEND Family Medicine
DX: M54.2 Cervicalgia (principal); N39.0 Urinary tract infection, site not specified; B19.20 Unspecified viral hepatitis C without hepatic coma; F17.210 Nicotine dependence, cigarettes, uncomplicated
CPT/HCPCS: 72156; 80048; 81001; 84703; 85025; 85652; 86140; 87040; 87077; 87086; 87186; A9579; J1885; J2270; J2543; J3370; J7050